=== PATIENT | female | born 1930 | race Caucasian/White ===

== ENCOUNTER 2016-08-17 16:32 | Emergency (ER) | payer MEDICARE ==
[~2016-08-17] VITALS: Ht 165.1 cm; Wt 72.6 kg
[~2016-08-17 16:32] MED LIST: ACETAMINOPHEN 500 MG PO; ALEN70TA2 PO; ALPR0.25 PO; ALPR0.2550 PO; ASP81CT PO; ASPI325T32 PO; ASPI325T4 PO; ATEN-147 PO; ATEN25TA PO; CHOL200018 PO; CHOL5000 PO; CHOL500019 PO; CITA10TA70 PO; CYCL10TA9 PO; DCS100C PO; FERR134T PO; HCT25T PO; HYDR-3714 PO; HYDR1TAB PO; KCL10CCR PO; MECL-124 PO; MECL-133 PO; MELO-195 PO; MULT1CAP27 PO; OMEP20CA12 PO; OMG1KC PO; POTA-51 PO; SIMV20TA3 PO; SIMV40TA4 PO; TRAM50TA2 PO
--- OUTSIDE RECORDS SUMMARY | 2016-08-17 16:39 | XMS REPORT | Continuity of Care Document ---
Author Author [facility] Organization [facility] Address Unknown Phone Unavailable Care Team Providers Care [employer] Name Role Phone MIKEL GERMAIN MD PCP Insurance Providers Payer Name Policy Number Subscriber Name Relationship Advantra Burt [id number] Georgiana Rossi 17 Self / Same As Patient Advance Directives Directive Response Recorded Date/Time Advance Directives Yes 09/12/14 12:58pm Health Care Power of [employer] Yes 09/12/14 12:58pm Organ Donor No 09/12/14 12:58pm Resuscitation Status DNR-Pt Request 09/12/14 12:58pm Problems No known problems or medical conditions. Medications Medication Dose Route Sig Days/Qty Instructions Order Date Discontinued Date Status Hydrochlorothiazide 25 Mg PO DAILY 02/16/10 09/12/14 Discontinued Meclizine Hcl 25 Mg PO THREE TIMES A DAY 02/16/10 09/12/14 Discontinued Aspirin 81 Mg PO DAILY 02/16/10 09/20/14 Discontinued Simvastatin 20 Mg PO DAILY AT HS 02/16/10 09/12/14 Discontinued Atenolol 1 Each PO DAILY AT HS 02/16/10 09/20/14 Discontinued Alprazolam 1 Each PO Q8HR PRN 02/16/10 09/12/14 Discontinued Multivitamins 1 Each PO DAILY 02/16/10 09/12/14 Discontinued Fish Oil 1,000 Mg PO DAILY 02/16/10 09/12/14 Discontinued Acetaminophen/Hydrocodone Bitart 0.5 - 1 Each PO Q4HR PRN 20 Qty 09/12/14 Discontinued Docusate Sodium 100 Mg PO TWICE A DAY 30 Qty Take while using pain medicine to avoid constipation 02/16/10 09/12/14 Discontinued Alprazolam 0.25 Mg PO TWICE A DAY PRN ANXIETY 09/12/14 Active Citalopram Hydrobromide 10 Mg PO BEDTIME 09/12/14 Active Simvastatin 40 Mg PO BEDTIME 09/12/14 Active Meclizine HCl 25 Mg PO TWICE A DAY 09/12/14 Active Hydrocodone Bit/Acetaminophen 1 Tab PO EVERY 8HRS PRN PAIN 09/12/14 Active Meloxicam (Mobic) 15 Mg PO DAILY 09/12/14 09/20/14 Discontinued Cholecalciferol (Vitamin D3) 2,000 Unit PO DAILY 09/12/14 Active Omeprazole 20 Mg PO DAILY 30 Qty 09/12/14 Active Tramadol Hcl 50 Mg PO EVERY 6 HOURS PRN PAIN 09/12/14 Active [Tylenol ES 500 MG] 500 Mg PO NEEDED PRN PAIN 09/12/14 Active Potassium Chloride 20 Meq PO DAILY 09/12/14 09/20/14 Discontinued Atenolol 50 Mg PO BEDTIME 60 Qty 09/20/14 Active Aspirin 325 Mg PO DAILY 100 Qty 09/20/14 Active Potassium Chloride 20 Meq PO DAILY@0700 60 Qty 09/20/14 Active Social History Social History Problem Response Recorded Date/Time Alcohol Use Denies Use 09/12/2014 1:02pm Recreational Drug Use No 09/12/2014 1:02pm Recent Foreign Travel No 09/12/2014 1:02pm Recent Infectious Disease Exposure No 09/12/2014 1:02pm Hospitalization with Isolation Denies 09/20/2014 7:55pm Smoking Status Never a Smoker 09/12/2014 12:57pm Do you dip or chew tobacco? No 09/12/2014 12:57pm Query Response Start Date Stop Date Smoking Status Never a Smoker Hospital Discharge Instructions Patient Instructions Physician Instructions Patient Instructions/FollowUp: s/p right total knee replacement [place]IA [place] DISCHARGE ORDERS Height (Feet): 5 Height (Inches): 2.00 Weight (Pounds): 143 Weight (Ounces): 2.0 Reason Pt Homebound Pt is unable to ambulate without assistance and is unable to drive. She is at high fall risk and working on relearning to walk I Have Seen Pt Sudt-du-Wjfi: Yes Date of Face to Face: Sep 20, 2014 Discharged To: Home Diagnosis/Conditions Order: 1. R total knee replacement 2.HTN 3.mild memory loss *I certify that based on my findings, the following services are medically necessary Home Health Services: Services: Nursing Services, Physical Therapy-Evaluate & Treat My clinical findings support the need for the above services; see Diagnosis. I certify that this patient is under my care and that I, a nurse practitioner or a physician; a assistant manager retail working with me, had a face to face encounter that - meets the physician face to face encounter requirements with this patient as dated. Plan of Care Discharge Date 09/20/14 2:30pm Disposition 30 STILL A PATIENT Instructions/Education Provided Total Knee Replacement (ED) Forms Provided PDI Surgical Prescriptions See Medications Section Referrals (Unspecified) Reason(s) for Referral: F/U with Dr. Gibbs 10/07/14 at 0900 AM. Care Plan and Goals Patient will need to discharge with [facility] for PT/OT and bath aide F/U with Dr. Gibbs 10/07/14 at 0900 AM. Functional Status Query Response Date Recorded Comprehension Ability Understands Concepts September 19, 2014 8:00am Allergies, Adverse Reactions, Alerts Allergen Type Severity Reaction Status Last Updated Penicillins ([id number]) Allergy Unknown Active 09/12/14 Codeine Allergy Unknown Active 09/12/14 Immunizations Name Given Type Date of Influenza Vaccine 06/16/14 Historical pneumococcal polysaccharide PPV23 09/20/14 Administered Vital Signs Acute Vital Signs Vital Response Date/Time Temperature (Fahrenheit) 98.0 degrees F (97.6 - 99.5) Temperature (Calculated Celsius) 36.86521 degrees C (36.4 - 37.5) Temperature Source Temporal Pulse Rate (adult) 60 bpm (60 - 90) Respiratory Rate 16 bpm (12 - 24) O2 Sat by Pulse Oximetry 97 % (88 - 100) Blood Pressure 176/74 mm Hg Pain Pain Intensity 0 Pain Pain Intensity 0 Height (Feet) 5 feet Height (Inches) 2.00 inches Height (Calculated Centimeters) 157.256324 cm Weight (Pounds) 143 pounds Weight (Ounces) 2.0 oz Weight (Calculated Grams) 40089.409 gm Weight (Calculated Kilograms) 64.814828 kilograms Calculated BMI 26.15 Results Laboratory Results Test Name Result Units Flags Reference Collection Date/Time Result Date/ Time Comments White Blood Count 10.4 10^3/uL 4.3-11.0 09/17/2014 5:05am 09/17/2014 6: 29am Red Blood Count 3.47 10^6/uL L 4.35-5.85 09/17/2014 5:0509/17/2014 6: 29am Hemoglobin 10.6 G/DL #L 11.5-16.0 09/17/2014 5:0509/17/2014 6:29am Hematocrit 33 % L 35-52 09/17/2014 5:0509/17/2014 6:29am Mean Corpuscular Volume 94 FL 80-99 09/17/2014 5:0509/17/2014 6: 29am Mean Corpuscular Hemoglobin 31 PG 25-34 09/17/2014 5:0509/17/2014 6: 29am Mean Corpuscular Hemoglobin Concent 33 G/DL 32-36 09/17/2014 5:0501/2015 6:29am Red Cell Distribution Width 13.0 % 10.0-14.5 09/17/2014 5:052014 6:29am Platelet Count 462 10^3/uL H 130-400 09/17/2014 5:0509/17/2014 6:29am Mean Platelet Volume 9.7 FL 7.4-10.4 09/17/2014 5:0509/17/2014 6: 29am Sodium Level 137 MMOL/L 135-145 09/17/2014 5:0509/17/2014 6:13am Potassium Level 3.7 MMOL/L 3.6-5.0 09/17/2014 5:0509/17/2014 6:13am Chloride Level 98 MMOL/L 98-107 09/17/2014 5:0509/17/2014 6:13am Carbon Dioxide Level 28 MMOL/L 21-32 09/17/2014 5:0509/17/2014 6: 13am Blood Urea Nitrogen 16 MG/DL 7-18 09/17/2014 5:05am 09/17/2014 6:13am Creatinine 0.93 MG/DL 0.60-1.30 09/17/2014 5:05am 09/17/2014 6:13am BUN/Creatinine Ratio 17 09/17/2014 5:05am 09/17/2014 6:13am Estimat Glomerular Filtration Rate 57 09/17/2014 5:05am 09/17/2014 6:13am GFR INTERPRETIVE DATA UNITS FOR ESTIMATED GFR (eGFR): mL/min/1.73 M2 REFERENCE RANGE FOR ESTIMATED GFR (eGFR) eGFR NORMAL eGFR >60 MODERATELY DECREASED eGFR 30-59 SEVERLY DECREASED eGFR 15-29 KIDNEY FAILURE <15 (OR DIALYSIS) Glucose Level 96 MG/DL 70-105 09/17/2014 5:05am 09/17/2014 6:13am Calcium Level 9.9 MG/DL 8.5-10.1 09/17/2014 5:05am 09/17/2014 6:13am Magnesium Level 1.9 MG/DL 1.8-2.4 09/13/2014 4:24am 09/13/2014 5:29am Procedures No known history of procedures. Encounters Encounter Location Date/Time Discharged Inpatient Via [facility] 09/12/14 12:07pm
[2016-08-17] MEDS ORDERED: ACETAMINOPHEN 500 MG TAB (TYLENOL) PO ONE (16:45)
--- NOTE | 2016-08-17 17:06 | ED Head Injury ---
General Chief Complaint: Head/Cervical Problems Stated Complaint: LOC/FALL/HEAD INJ Nursing Triage Note: Pt had a syncope episode and then fell thus hitting her head. Redness noted top of scalp. Source: patient, family History of Present Illness Time seen by provider: 17:02 Initial Comments This 86-year-old white female presents after syncopal episode that occurred short of her presentation to the emergency department seeming. The patient in falling struck her head over her left occiput. The patient when she awoke was verbally appropriate. Other than complaining of some pain over the impact located over the left occipital area. She has no other significant complaint. Patient has a history of frequent falls in the past. Usually these are due to loss of balance. The patient has Mnire's disease. The patient syncopal episode tonight was unusual for the patient in that it was a syncopal episode. She denies associated palpitations, chest pain, shortness of breath, associated vomiting, diarrhea, dysuria or frequency, fever or chill. Past medical history of significance includes previous hypokalemia episodes leading to fainting. Allergies and Home Medications Allergies Coded Allergies: Penicillins (Unverified Allergy, Unknown, 09/12/14) Sulfa (Sulfonamide Antibiotics) (Unverified Allergy, Unknown, RASH, 03/12/15 ) codeine (Unverified Allergy, Unknown, 09/12/14) Home Medications 500 MG PO PRN PRN PRN PAIN (Reported) Alendronate Sodium 70 Mg Tablet 70 MG PO UD (Reported) Alprazolam 0.25 Mg Tablet 0.25 MG PO BID PRN PRN ANXIETY (Reported) Aspirin 325 Mg Tablet.dr 325 MG PO BID (Reported) Atenolol 25 Mg Tablet 1 EACH PO HS (Reported) Cholecalciferol 5,000 Unit Capsule 5,000 UNIT PO DAILY (Reported) Cholecalciferol (Vitamin D3) 50,000 Unit Capsule 50,000 UNIT PO UD (Reported) Citalopram Hydrobromide 10 Mg Tablet 10 MG PO HS (Reported) Cyclobenzaprine Hcl 10 Mg Tablet 1 EACH PO TID PRN PRN SPASMS (Reported) Ferrous Sulfate 134 Mg Tablet 150 MG PO BID (Reported) Hydrocodone Bit/Acetaminophen 1 Tab Tablet 1 TAB PO Q4H PRN PRN PAIN (Reported) Meclizine Hcl 25 Mg Tab 25 MG PO BID (Reported) Omeprazole 20 Mg Capsule.dr #30 20 MG PO DAILY (Reported) Potassium Chloride 10 Meq Capcr #60 20 MEQ PO DAILY@0700 Prescribed by: KINGSLEY MCGINNIS on 09/20/14 0759 Simvastatin 40 Mg Tablet 40 MG PO HS (Reported) Constitutional: No chills, No fever Eyes: Denies Blurred Vision Ears, Nose, Mouth, Throat: denies ear pain Respiratory: No cough Cardiovascular: No chest pain, No palpitations, syncope Gastrointestinal: No abdominal pain, No diarrhea, No nausea, No vomiting Genitourinary: No dysuria : No Musculoskeletal: No back pain Skin: No rash Psychiatric/Neurological: No Symptoms Reported Endocrine: No Symptoms Reported Hematologic/Lymphatic: No Symptoms Reported Past Larcjyr-Autxef-Akvrro Hx Patient Social History Alcohol Use: Denies Use Recreational Drug Use: No Smoking Status: Never a Smoker Recent Foreign Travel: No Contact w/Someone Who Travel: No Recent Infectious Disease Expo: No Recent Hopitalizations: No Physical Abuse Screen: No Sexual Abuse: No Immunizations Up To Date PED Vaccines UTD: No Date of Influenza Vaccine: May 03, 2016 Surgeries HX Surgeries: Yes (Right and Left TKR) Surgeries: Orthopedic Respiratory Hx Respiratory Disorders: No Cardiovascular Hx Cardiac Disorders: Yes Cardiac Disorders: Hypertension Neurological Hx Neurological Disorders: No Reproductive System Hx Reproductive Disorders: No Genitourinary Hx Genitourinary Disorders: No Gastrointestinal Hx Gastrointestinal Disorders: Yes (Reflux) Musculoskeletal Hx Musculoskeletal Disorders: Yes (FX humerus, sacrum, R AND L TKR ) Musculoskeletal Disorders: Osteoporosis, Arthritis, Fractures Endocrine Hx Endocrine Disorders: No HEENT HX ENT Disorders: Yes (Cataract surgery; Miniere's DX) HEENT Disorders: Cataract Cancer Hx Cancer: No Psychosocial Hx Psychiatric Problems: Yes Behavioral Health Disorders: Anxiety, Depression Integumentary HX Skin/Integumentary Disorder: No Reviewed Nursing Assessment Reviewed/Agree w Nursing PMH: Yes Physical Exam Vital Signs Vital Sign - Last 12Hours 08/17/16 16:47 Temp 98.3 Pulse 55 Resp 16 B/P 204/93 Pulse Ox 98 Capillary Refill : Less Than 3 Seconds General Appearance: WD/WN mild distress HEENT: other (there is a contusion abrasion noted over the patient's occipital approximately a 4 cm in diameter.) Neck: non-tender full range of motion supple Cardiovascular: regular rate, rhythm bradycardia Respiratory: lungs clear normal breath sounds no respiratory distress Gastrointestinal: normal bowel sounds non tender soft Back: normal inspection Extremities: normal range of motion non-tender normal inspection Psychiatric: alert oriented x 3 Crainal Nerves: normal hearing normal speech Motor/Sensory: no motor deficit no sensory deficit Skin: normal color warm/dry other (occipital contusion abrasion) [place] Coma Score Best Eye Response: (4) Open Spontaneously Best Verbal Response: (5) Oriented Best Motor Response: (6) Obeys Commands Jayson Total: 15 Progress/Results/Core Measures Results/Orders Lab Results Laboratory Tests Test 08/17/16 17:03 Range/Units Alanine Aminotransferase (ALT/SGPT) 11 0-55 U/L Albumin 4.1 3.2-4.5 G/DL Alkaline Phosphatase 67 40-136 U/L Anion Gap 10 5-14 MMOL/L Aspartate Amino Transf (AST/SGOT) 21 5-34 U/L BUN/Creatinine Ratio 25 Band Neutrophils 5 % Basophils # (Auto) 0.0 0.0-0.1 10^3/uL Basophils % (Manual) 1 % Basophils (%) (Auto) 0 0-10 % Blood Morphology Comment NORMAL Blood Urea Nitrogen 22 H 7-18 MG/DL Calcium Level 8.9 8.5-10.1 MG/DL Carbon Dioxide Level 24 21-32 MMOL/L Chloride Level 102 98-107 MMOL/L Creatinine 0.88 0.60-1.30 MG/DL Eosinophils # (Auto) 0.1 0.0-0.3 10^3/uL Eosinophils % (Manual) 2 % Eosinophils (%) (Auto) 1 0-10 % Estimat Glomerular Filtration Rate > 60 Glucose Level 168 H 70-105 MG/DL Hematocrit 38 35-52 % Hemoglobin 11.8 11.5-16.0 G/DL Lymphocytes # (Auto) 0.7 L 1.0-4.0 X 10^3 Lymphocytes % (Manual) 5 % Lymphocytes (%) (Auto) 6 L 12-44 % Mean Corpuscular Hemoglobin 28 25-34 PG Mean Corpuscular Hemoglobin Concent 32 32-36 G/DL Mean Corpuscular Volume 88 80-99 FL Mean Platelet Volume 10.2 7.4-10.4 FL Monocytes # (Auto) 0.7 0.0-1.0 X 10^3 Monocytes % (Manual) 7 % Monocytes (%) (Auto) 6 0-12 % Neutrophils # (Auto) 10.6 H 1.8-7.8 X 10^3 Neutrophils % (Manual) 80 % Neutrophils (%) (Auto) 88 H 42-75 % Platelet Count 214 130-400 10^3/uL Potassium Level 3.5 L 3.6-5.0 MMOL/L Red Blood Count 4.26 L 4.35-5.85 10^6/uL Red Cell Distribution Width 14.3 10.0-14.5 % Sodium Level 136 135-145 MMOL/L Total Bilirubin 0.4 0.1-1.0 MG/DL Total Protein 7.1 6.4-8.2 G/DL White Blood Count 12.1 H 4.3-11.0 10^3/uL My Orders Orders-JASSON ALEXIS MD Ct Head/Cervical Spine Wo (08/17/16 16:36) Comprehensive Metabolic Panel (08/17/16 16:36) Cbc With Automated Diff (08/17/16 16:36) Acetaminophen Tablet (Tylenol Tablet) (08/17/16 16:45) Manual Differential (08/17/16 17:03) Medications Given in ED Current Medications Medications Dose Ordered Sig/Lori Route Start Time Stop Time Status Last Admin Dose Admin Acetaminophen 1,000 mg ONCE ONCE PO 08/17/16 16:45 08/17/16 16:46 DC 08/17/16 17:40 1,000 MG Vital Signs/I&O Vital Sign - Last 12Hours 08/17/16 08/17/16 16:47 17:40 Temp 98.3 98.3 Pulse 55 Resp 16 B/P 204/93 Pulse Ox 98 Blood Pressure Mean: 130 Progress Note : Time: 18:[address] of the patient's head and neck demonstrated no evidence of cervical spine fracture. There was however bilateral subdural hematomas. One was located beneath the left occipital contusion. The other was a contrecoup injury located over the base of the right cerebrum. Patient's potassium was normal at 3.5. Patient's EKG demonstrated a sinus bradycardia but no evidence of an acute current of injury. After prolonged conversation with patient and family patient agreed to a transfer to [place] to be cared for by neurosurgery at [place]. Dr. Mendoza in the emergency department at [place] excepted the patient in transfer. Departure Impression Impression: Primary Impression: Bilateral subdural hematomas Additional Impression: Episode of syncope Qualified Code: R55 - Syncope and collapse Disposition: XF SHT-TRM HOSP Condition: Unchanged Transfer Transfer Notes Dr. Mendoza in the emergency department at [place] except the patient in transfer. Call is placed to EMS for transfer. Transfer Time: 18:40 Transfer Facility: [facility] Method of Transfer: EMS ([facility]) Departure-Patient Inst. Referrals: YEVGENIY BRAVO MD (PCP/Family) Primary Care Physician JASSON ALEXIS MD Aug 17, 2016 17:06
[2016-08-17 17:10] LABS: BASOPHILS % (AUTO) 0 % (0-10); EOSINOPHILS # (AUTO) 0.1 10^3/uL (0.0-0.3); EOSINOPHILS % (AUTO) 1 % (0-10); LYMPHOCYTES # (AUTO) 0.7 X 10^3 (1.0-4.0); LYMPHOCYTES % (AUTO) 6 % (12-44); MEAN CORPUSCULAR HEMOGLOBIN 28 PG (25-34); MEAN CORPUSCULAR HGB CONC 32 G/DL (32-36); MEAN CORPUSCULAR VOLUME 88 FL (80-99); MEAN PLATELET VOLUME 10.2 FL (7.4-10.4); MONOCYTES # (AUTO) 0.7 X 10^3 (0.0-1.0); MONOCYTES % (AUTO) 6 % (0-12); NEUTROPHILS # (AUTO) 10.6 X 10^3 (1.8-7.8); NEUTROPHILS % (AUTO) 88 % (42-75); PLATELET COUNT 214 10^3/uL (130-400); RED BLOOD COUNT 4.26 10^6/uL (4.35-5.85); RED CELL DISTRIBUTION WIDTH 14.3 % (10.0-14.5); WHITE BLOOD COUNT 12.1 10^3/uL (4.3-11.0)
[2016-08-17 17:32] LABS: ALANINE AMINOTRANSFERASE 11 U/L (0-55); ALBUMIN 4.1 G/DL (3.2-4.5); ANION GAP 10 MMOL/L (5-14); ASPARTATE AMINO TRANSFERASE 21 U/L (5-34); BILIRUBIN,TOTAL 0.4 MG/DL (0.1-1.0); BLOOD UREA NITROGEN 22 MG/DL (7-18); BUN/CREATININE RATIO 25; CALCIUM 8.9 MG/DL (8.5-10.1); CARBON DIOXIDE 24 MMOL/L (21-32); CHLORIDE 102 MMOL/L (98-107); CREATININE SERUM 0.88 MG/DL (0.60-1.30); GFR ESTIMATED > 60; GLUCOSE 168 MG/DL (70-105); POTASSIUM 3.5 MMOL/L (3.6-5.0); SODIUM 136 MMOL/L (135-145); TOTAL PROTEIN 7.1 G/DL (6.4-8.2)
--- NOTE | 2016-08-17 17:46 | Diagnostic Imaging Report ---
PROCEDURE: CT head and CT cervical spine without contrast. TECHNIQUE: Multiple contiguous axial images were obtained through the brain and cervical spine without the use of intravenous contrast. Sagittal and coronal reformations through the cervical spine were then performed. INDICATION: Fell, head neck pain. CT HEAD: There are no previous CT head examinations available for comparison. FINDINGS: There is a sizable area of soft tissue edema and hematoma formation along the posterior aspect of the left parietal bone near the vertex of the skull. There is no evidence for a skull fracture in this area but there is a small amount of acute hemorrhage in the subdural space in this region. The hemorrhage measures roughly 9.4 mm in maximum thickness. In addition, there is also a small amount of acute hemorrhage in the subdural space along the free edge of the tentorium on the right. The hemorrhage in this area measures 7 mm in maximum thickness. There is no other extra-axial hemorrhage identified. There is no parenchymal hemorrhage noted either. The ventricles are not abnormally dilated and stable in size when compared to the MR brain exam of 04/23/12. The cortical atrophy and periventricular encephalomalacia seen previously are again evident and no different. The orbits are symmetrical and within normal limits. The sinuses are generally clear. IMPRESSION: 1. There is a prominent area of soft tissue edema and hematoma formation involving the scalp over the left parietal bone. While there is no skull fracture identified, there is evidence of acute hemorrhage in the subdural space in this region and along the free edge of the tentorium on the right. No other hemorrhage is noted. Even so, a short-term (24 hour) followup CT head exam would be recommended for further study. 2. There is no other acute abnormality identified. These results were discussed with Dr. Vipul Chaudhry in the ER by Dr. Denis. CT CERVICAL SPINE: The reconstructed parasagittal images again show the vertebral body heights to be within normal limits and similar to the prior exam of 11/13/12. 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 The degenerative disc and bony disease at C5-6 and C6-7 noted previously does not appear to have progressed significantly either. There is no fracture or acute bony abnormality identified. There is no sign of retropharyngeal edema. The lung apices are clear. The thyroid gland is unremarkable. IMPRESSION: There is no evidence for an acute bony abnormality. CRITICAL FINDING Dictated by: Dictated on workstation # [id number]
[2016-08-17 17:47] LABS: BAND NEUTROPHILS 5 %; BASOPHILS % (MANUAL) 1 %; EOSINOPHILS % (MANUAL) 2 %; LYMPHOCYTES % (MANUAL) 5 %; NEUTROPHILS % (MANUAL) 80 %
[2016-08-17] MEDS ORDERED: hydrALAZINE (APESOLINE) 20 MG/ML VIAL IV STA (19:15)
[2016-08-17 19:27] VITALS: BP 187/80
[2016-08-17] MEDS ORDERED: hydrALAZINE (APESOLINE) 20 MG/ML VIAL IV ONE (19:30)
[2016-08-17 19:34] VITALS: BP 165/66
== END 2016-08-17 19:37 | disposition short-term general hospital (02) ==
LOC: EDUNIT# 16:32 → ER 16:34
DX: S06.5X9A Traumatic subdural hemorrhage with loss of consciousness of unspecified duration, initial encounter (principal); S00.01XA Abrasion of scalp, initial encounter; I10 Essential (primary) hypertension; R29.6 Repeated falls; Z79.82 Long term (current) use of aspirin; Z79.899 Other long term (current) drug therapy; W18.30XA Fall on same level, unspecified, initial encounter; Y92.009 Unspecified place in unspecified non-institutional (private) residence as the place of occurrence of the external cause; Y99.8 Other external cause status
CPT/HCPCS: 36415; 70450; 72125; 80053; 85007; 85027; 93005; 96374

== ENCOUNTER 2017-09-18 13:35 | Inpatient (IN) | payer MEDICARE ==
[~2017-09-18] VITALS: Ht 165.1 cm; Wt 68.9 kg
[2017-09-18] MEDS ORDERED: cefTRIAXone 1 GM (ROCEPHIN) VIAL IV STA (13:39)
[2017-09-18] MEDS ORDERED: NS IV 1000 ML 1,000 ML IV ONE (13:39)
--- OUTSIDE RECORDS SUMMARY | 2017-09-18 13:39 | XMS REPORT | Continuity of Care Document ---
Author Author [facility] Organization [facility] Address Unknown Phone Unavailable Allergies Active Description Code Type Severity Reaction Onset Reported/Identified Relationship to Patient Clinical Status Yes codeine [id number] Drug Allergy Unknown N/A 09/12/2014 Yes PENICILLIN PENICILLIN Unknown N/A 09/12/2014 Yes Penicillins [id number] Drug Allergy Unknown N/A 09/12/2014 Yes Sulfa (Sulfonamide Antibiotics) [id number] Drug Allergy Unknown RASH 2014 Medications There is no data. Problems Date Dx Coded Attending Type Code Diagnosis Diagnosed By 02/16/2010 Ot 805.6 02/16/2010 Ot 959.19 02/16/2010 Ot E000.8 02/16/2010 Ot E030 02/16/2010 Ot E849.0 02/16/2010 Ot E888.9 06/23/2014 Ot 722.4 06/23/2014 Ot 722.52 06/23/2014 Ot 368.47 06/23/2014 Ot 722.4 06/28/2014 Ot 722.4 06/28/2014 Ot 722.52 06/28/2014 Ot 368.47 06/28/2014 Ot 722.4 07/12/2014 MIKEL GERMAIN MD Ot V54.11 07/12/2014 MIKEL GERMAIN MD Ot V57.1 07/22/2014 MIKEL GERMAIN MD Ot V54.11 AFTERCARE HEALING TRAUMATIC FX UPPER ARM 07/22/2014 MIKEL GERMAIN MD Ot V57.1 PHYSICAL THERAPY NEC 09/12/2014 Ot 722.4 09/12/2014 Ot 722.52 09/12/2014 Ot 368.47 09/12/2014 Ot 722.4 09/15/2014 KINGSLEY MCGINNIS MD Ot 285.9 09/15/2014 KINGSLEY MCGINNIS MD Ot 401.9 09/15/2014 KINGSLEY MCGINNIS MD Ot V43.65 09/15/2014 RAS ZHAO, KINGSLEY M Ot V54.81 09/15/2014 RAS ZHAO, KINGSLEY M Ot V57.89 09/16/2014 RAS ZHAO, KINGSLEY M Ot 285.9 09/16/2014 RAS ZHAO, KINGSLEY M Ot 401.9 09/16/2014 RAS ZHAO, KINGSLEY M Ot V43.65 09/16/2014 RAS ZHAO, KINGSLEY M Ot V54.81 09/16/2014 RAS ZHAO, KINGSLEY M Ot V57.89 09/16/2014 RAS ZHAO, KINGSLEY M Ot 285.9 09/16/2014 RAS ZHAO, KINGSLEY M Ot 401.9 09/16/2014 RAS ZHAO, KINGSLEY M Ot V43.65 09/16/2014 RAS ZHAO, KINGSLEY M Ot V54.81 09/16/2014 RAS ZHAO, KINGSLEY M Ot V57.89 09/16/2014 Ot 722.4 09/16/2014 Ot 722.52 09/16/2014 Ot 368.47 09/16/2014 Ot 722.4 09/16/2014 RAS ZHAO, KINGSLEY M Ot 285.9 09/16/2014 RAS ZHAO, KINGSLEY M Ot 401.9 09/16/2014 RAS ZHAO, KINGSLEY M Ot V43.65 09/16/2014 RAS ZHAO, KINGSLEY M Ot V54.81 09/16/2014 RAS ZHAO, KINGSLEY M Ot V57.89 09/20/2014 RAS ZHAO, KINGSLEY M Ot 285.9 09/20/2014 RAS ZHAO, KINGSLEY M Ot 401.9 09/20/2014 RAS ZHAO, KINGSLEY M Ot V43.65 09/20/2014 RAS ZHAO, KINGSLEY M Ot V54.81 09/20/2014 RAS ZHAO, KINGSLEY M Ot V57.89 09/20/2014 RAS ZHAO, KINGSLEY M Ot 285.1 AC POSTHEMORRHAG ANEMIA 09/20/2014 RAS ZHAO, KINGSLEY M Ot 285.9 09/20/2014 RAS ZHAO, KINSGLEY M Ot 294.20 DEMENTIA, UNSPECIFIED, WITHOUT BEHAVIORA 09/20/2014 RAS ZHAO, KINGSLEY David Ot 401.9 HYPERTENSION NOS 09/20/2014 RAS ZHAO, KINGSLEY Frankie Ot V43.65 KNEE JOINT REPLACEMENT STATUS 09/20/2014 RAS ZHAO, KINGSLEY Frankie Ot V54.81 AFTERCARE FOLLOWING JOINT REPLACEMENT 09/20/2014 RAS ZHAO, KINGSLEY Frankie Ot V57.89 REHABILITATION PROC NEC 11/04/2014 Ot 722.4 11/04/2014 Ot 722.52 11/04/2014 Ot 368.47 11/04/2014 Ot 722.4 11/18/2014 RAS ZHAO, KINGSLEY Frankie Ot 733.00 03/14/2015 SHELLY ZHAO, YEVGENIY A Ot 300.00 03/14/2015 SHELLY ZHAO, YEVGENIY A Ot 311 03/14/2015 SHELLY ZHAO, YEVGENIY A Ot 401.9 03/14/2015 SHELLY ZHAO, YEVGENIY A Ot 530.81 03/14/2015 SHELLY ZHAO, YEVGENIY A Ot V43.64 03/14/2015 SHELLY ZHAO, YEVGENIY A Ot V54.81 03/14/2015 SHELLY ZHAO, YEVGENIY A Ot V57.89 03/14/2015 SHELLY ZHAO, YEVGENIY A Ot 300.00 03/14/2015 SHELLY ZHAO, YEVGENIY A Ot 311 03/14/2015 SHELLY ZHAO, YEVGENIY A Ot 401.9 03/14/2015 SHELLY ZHAO, YEVGENIY A Ot 530.81 03/14/2015 SHELLY ZHAO, YEVGENIY A Ot V43.64 03/14/2015 SHELLY ZHAO, YEVGENIY A Ot V54.81 03/14/2015 SHELLY ZHAO, YEVGENIY A Ot V57.89 03/16/2015 SHELLY ZHAO, YEVGENIY A Ot 300.00 03/16/2015 SHELLY ZHAO, YEVGENIY A Ot 311 03/16/2015 SHELLY ZHAO, YEVGENIY A Ot 401.9 03/16/2015 SHELLY ZHAO, YEVGENIY A Ot 530.81 03/16/2015 SHELLY ZHAO, YEVGENIY A Ot V43.64 03/16/2015 SHELLY ZHAO, YEGVENIY A Ot V54.81 03/16/2015 SHELLY ZHAO, YEVGENIY A Ot V57.89 03/19/2015 SHELLY ZHAO, YEVGENIY A Ot 294.20 DEMENTIA, UNSPECIFIED, WITHOUT BEHAVIORA 03/19/2015 SHELLY ZHAO, YEVGENIY Sanchez Ot 300.00 ANXIETY STATE NOS 03/19/2015 SHELLY ZHAO, YEVGENIY Sanchez Ot 311 DEPRESSIVE DISORDER NEC 03/19/2015 SHELLY ZHAO, YEVGENIY Sanchez Ot 401.9 HYPERTENSION NOS 03/19/2015 SHELLY ZHAO, YEVGENIY Sanchez Ot 530.81 ESOPHAGEAL REFLUX 03/19/2015 SHELLY ZHAO, YEVGENIY Sanchez Ot 715.90 OSTEOARTHROS NOS-UNSPEC 03/19/2015 SHELLY ZHAO, YEVGENIY Sanchez Ot V43.64 HIP JOINT REPLACEMENT STATUS 03/19/2015 SHELLY ZHAO, YEVGENIY Sanchez Ot V54.81 AFTERCARE FOLLOWING JOINT REPLACEMENT 03/19/2015 SHELLY ZHAO, YEVGENIY Sanchez Ot V57.89 REHABILITATION PROC NEC 08/17/2016 Ot 722.4 CERVICAL DISC DEGEN 08/17/2016 Ot 722.52 LUMB/ LUMBOSAC DISC DEGEN 08/17/2016 Ot 368.47 HETERONYMOUS HEMIANOPSIA 08/17/2016 Ot 722.4 CERVICAL DISC DEGEN 08/17/2016 KINGSLEY MCGINNIS MD Ot 733.00 OSTEOPOROSIS NOS 08/17/2016 Ot 722.4 CERVICAL DISC DEGEN 08/17/2016 Ot 722.52 LUMB/ LUMBOSAC DISC DEGEN 08/17/2016 Ot 368.47 HETERONYMOUS HEMIANOPSIA 08/17/2016 Ot 722.4 CERVICAL DISC DEGEN 08/17/2016 KINGSLEY MCGINNIS MD Ot 733.00 OSTEOPOROSIS NOS 08/17/2016 REUBEN ZHAO, JASSON Kelley Ot I10 ESSENTIAL (PRIMARY) HYPERTENSION 08/17/2016 REUBEN ZHAO, JASSON Kelley Ot R29.6 REPEATED FALLS 08/17/2016 JASSON ALEXIS MD Ot R55 SYNCOPE AND COLLAPSE 08/17/2016 JASSON ALEXIS MD Ot S00.01XA ABRASION OF SCALP, INITIAL ENCOUNTER 08/17/2016 REUBEN ZHAO, JASSON Kelley Ot S06.5X9A TRAUM SUBDR HEM W LOC OF UNSP DURATION, 08/17/2016 JASSON ALEXIS MD Ot W18.30XA FALL ON SAME LEVEL, UNSPECIFIED, INITIAL 08/17/2016 JASSON ALEXIS MD Ot Y92.[address] [facility] NON-INSTITUT (PRIVATE 08/17/2016 JASSON ALEXIS MD Ot Y99.8 OTHER EXTERNAL CAUSE STATUS 08/17/2016 JASSON ALEXIS MD Ot Z79.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 08/17/2016 JASSON ALEXIS MD Ot Z79.899 OTHER NUTRITION AND DIETETICS INSTRUCTOR (CURRENT) DRUG THERAPY 06/15/2017 JASSON ALEXIS MD Ot E87.6 HYPOKALEMIA 06/15/2017 JASSON ALEXIS MD Ot F32.9 MAJOR DEPRESSIVE DISORDER, SINGLE EPISOD 06/15/2017 JASSON ALEXIS MD, Ot F41.9 ANXIETY DISORDER, UNSPECIFIED 06/15/2017 JASSON ALEXIS MD, Ot I10 ESSENTIAL (PRIMARY) HYPERTENSION 06/15/2017 JASSON ALEXIS MD Ot M81.0 AGE-RELATED OSTEOPOROSIS W/O CURRENT PAT 06/15/2017 JASSON ALEXIS MD, Ot R42 DIZZINESS AND GIDDINESS 06/15/2017 JASSON ALEXIS MD Ot Z87.01 PERSONAL HISTORY OF PNEUMONIA (RECURRENT 06/15/2017 JASSON ALEXIS MD, Ot Z87.81 PERSONAL HISTORY OF (HEALED) TRAUMATIC F 06/15/2017 JASSON ALEXIS MD Ot Z87.828 PERSONAL HISTORY OF OTH (HEALED) PHYSICA Procedures There is no data. Results Test Result Range Complete blood count (CBC) with automated white blood cell (WBC) differential - 08/17/16 17:03 Blood leukocytes automated count (number/volume) 12.1 10*3/uL 4.3-11.0 Blood erythrocytes automated count (number/volume) 4.26 10*6/uL 4.35-5.85 Venous blood hemoglobin measurement (mass/volume) 11.8 g/dL 11.5-16.0 Blood hematocrit (volume fraction) 38 % 35-52 Automated erythrocyte mean corpuscular volume 88 [foz_us] 80-99 Automated erythrocyte mean corpuscular hemoglobin (mass per erythrocyte) 28 pg 25-34 Automated erythrocyte mean corpuscular hemoglobin concentration measurement ( mass/volume) 32 g/dL 32-36 Automated erythrocyte distribution width ratio 14.3 % 10.0-14.5 Automated blood platelet count (count/volume) 214 10*3/uL 130-400 Automated blood platelet mean volume measurement 10.2 [foz_us] 7.4-10.4 Automated blood neutrophils/100 leukocytes 88 % 42-75 Automated blood lymphocytes/100 leukocytes 6 % 12-44 Blood monocytes/100 leukocytes 6 % 0-12 Automated blood eosinophils/100 leukocytes 1 % 0-10 Automated blood basophils/100 leukocytes 0 % 0-10 Blood neutrophils automated count (number/volume) 10.6 10*3 1.8-7.8 Blood lymphocytes automated count (number/volume) 0.7 10*3 1.0-4.0 Blood monocytes automated count (number/volume) 0.7 10*3 0.0-1.0 Automated eosinophil count 0.1 10*3/uL 0.0-0.3 Automated blood basophil count (count/volume) 0.0 10*3/uL 0.0-0.1 Comprehensive metabolic panel - 08/17/16 17:03 Serum or plasma sodium measurement (moles/volume) 136 mmol/L 135-145 Serum or plasma potassium measurement (moles/volume) 3.5 mmol/L 3.6-5.0 Serum or plasma chloride measurement (moles/volume) 102 mmol/L 98-107 Carbon dioxide 24 mmol/L 21-32 Serum or plasma anion gap determination (moles/volume) 10 mmol/L 5-14 Serum or plasma urea nitrogen measurement (mass/volume) 22 mg/dL 7-18 Serum or plasma creatinine measurement (mass/volume) 0.88 mg/dL 0.60-1.30 Serum or plasma urea nitrogen/creatinine mass ratio 25 NRG Serum or plasma creatinine measurement with calculation of estimated glomerular filtration rate > NRG Serum or plasma glucose measurement (mass/volume) 168 mg/dL 70-105 Serum or plasma calcium measurement (mass/volume) 8.9 mg/dL 8.5-10.1 Serum or plasma total bilirubin measurement (mass/volume) 0.4 mg/dL 0.1-1.0 Serum or plasma alkaline phosphatase measurement (enzymatic activity/volume) 67 U/L 40-136 Serum or plasma aspartate aminotransferase measurement (enzymatic activity/ volume) 21 U/L 5-34 Serum or plasma alanine aminotransferase measurement (enzymatic activity/volume ) 11 U/L 0-55 Serum or plasma protein measurement (mass/volume) 7.1 g/dL 6.4-8.2 Serum or plasma albumin measurement (mass/volume) 4.1 g/dL 3.2-4.5 Blood manual differential performed detection - 08/17/16 17:03 Blood monocytes/100 leukocytes 7 % NRG Manual blood segmented neutrophils/100 leukocytes 80 % NRG Blood band neutrophils/100 leukocytes 5 % NRG Manual blood lymphocytes/100 leukocytes 5 % NRG Manual eosinophils/100 leukocytes in nose 2 % NRG Manual blood basophils/100 leukocytes 1 % NRG Blood erythrocyte morphology finding identification NORMAL NR Comprehensive metabolic panel - 06/15/17 11:59 Serum or plasma sodium measurement (moles/volume) 140 mmol/L 135-145 Serum or plasma potassium measurement (moles/volume) 4.0 mmol/L 3.6-5.0 Serum or plasma chloride measurement (moles/volume) 106 mmol/L 98-107 Carbon dioxide 22 mmol/L 21-32 Serum or plasma anion gap determination (moles/volume) 12 mmol/L 5-14 Serum or plasma urea nitrogen measurement (mass/volume) 11 mg/dL 7-18 Serum or plasma creatinine measurement (mass/volume) 0.83 mg/dL 0.60-1.30 Serum or plasma urea nitrogen/creatinine mass ratio 13 NRG Serum or plasma creatinine measurement with calculation of estimated glomerular filtration rate > NRG Serum or plasma glucose measurement (mass/volume) 90 mg/dL 70-105 Serum or plasma calcium measurement (mass/volume) 9.2 mg/dL 8.5-10.1 Serum or plasma total bilirubin measurement (mass/volume) 0.6 mg/dL 0.1-1.0 Serum or plasma alkaline phosphatase measurement (enzymatic activity/volume) 60 U/L 40-136 Serum or plasma aspartate aminotransferase measurement (enzymatic activity/ volume) 28 U/L 5-34 Serum or plasma alanine aminotransferase measurement (enzymatic activity/volume ) 10 U/L 0-55 Serum or plasma protein measurement (mass/volume) 7.4 g/dL 6.4-8.2 Serum or plasma albumin measurement (mass/volume) 4.0 g/dL 3.2-4.5 Serum or plasma troponin i.cardiac measurement (mass/volume) - 06/15/17 11:59 Serum or plasma troponin i.cardiac measurement (mass/volume) < ng/ mL <0.30 Complete blood count (CBC) with automated white blood cell (WBC) differential - 06/15/17 11:59 Blood leukocytes automated count (number/volume) 9.4 10*3/uL 4.3-11.0 Blood erythrocytes automated count (number/volume) 4.67 10*6/uL 4.35-5.85 Venous blood hemoglobin measurement (mass/volume) 13.1 g/dL 11.5-16.0 Blood hematocrit (volume fraction) 41 % 35-52 Automated erythrocyte mean corpuscular volume 88 [foz_us] 80-99 Automated erythrocyte mean corpuscular hemoglobin (mass per erythrocyte) 28 pg 25-34 Automated erythrocyte mean corpuscular hemoglobin concentration measurement ( mass/volume) 32 g/dL 32-36 Automated erythrocyte distribution width ratio 16.1 % 10.0-14.5 Automated blood platelet count (count/volume) 294 10*3/uL 130-400 Automated blood platelet mean volume measurement 10.6 [foz_us] 7.4-10.4 Automated blood neutrophils/100 leukocytes 70 % 42-75 Automated blood lymphocytes/100 leukocytes 19 % 12-44 Blood monocytes/100 leukocytes 8 % 0-12 Automated blood eosinophils/100 leukocytes 2 % 0-10 Automated blood basophils/100 leukocytes 1 % 0-10 Blood neutrophils automated count (number/volume) 6.6 10*3 1.8-7.8 Blood lymphocytes automated count (number/volume) 1.8 10*3 1.0-4.0 Blood monocytes automated count (number/volume) 0.8 10*3 0.0-1.0 Automated eosinophil count 0.2 10*3/uL 0.0-0.3 Automated blood basophil count (count/volume) 0.1 10*3/uL 0.0-0.1 Complete urinalysis with reflex to culture - 06/15/17 12:52 Urine color determination YELLOW NRG Urine clarity determination CLEAR NRG Urine pH measurement by test strip 8 5-9 Specific gravity of urine by test strip 1.015 1.016- 1.022 Urine protein assay by test strip, semi-quantitative NEGATIVE NEGATIVE Urine glucose detection by automated test strip NEGATIVE NEGATIVE Erythrocytes detection in urine sediment by light microscopy 2+ NEGATIVE Urine ketones detection by automated test strip NEGATIVE NEGATIVE Urine nitrite detection by test strip NEGATIVE NEGATIVE Urine total bilirubin detection by test strip NEGATIVE NEGATIVE Urine urobilinogen measurement by automated test strip (mass/volume) NORMAL NORMAL Urine leukocyte esterase detection by dipstick 1+ NEGATIVE Automated urine sediment erythrocyte count by microscopy (number/high power field) NONE NRG Automated urine sediment leukocyte count by microscopy (number/high power field ) NONE NRG Bacteria detection in urine sediment by light microscopy TRACE NRG Crystals detection in urine sediment by light microscopy NONE NRG Casts detection in urine sediment by light microscopy NONE NRG Mucus detection in urine sediment by light microscopy NEGATIVE NRG Complete urinalysis with reflex to culture NO NRG Encounters ACCT No. Visit Date/Time Discharge Status Pt. Type Provider Facility Loc./Unit Complaint [id number] 06/15/2017 11:20:00 06/15/2017 14:22:00 DIS Emergency JASSON ALEXIS MD [facility] ER DIZZINESS [id number] 08/17/2016 16:34:00 08/17/2016 19:37:00 DIS Emergency JASSON ALEXIS MD [facility] ER LOC/FALL/HEAD INJ [id number] 03/12/2015 11:37:00 03/19/2015 23:42:00 DIS Inpatient YEVGENIY BRAVO MD [facility] SURGICAL SWB TOTAL LEFT KNEE REPLACEMENT [id number] 11/04/2014 11:13:00 11/04/2014 23:59:59 CLS Outpatient KINGSLEY MCGINNIS MD [facility] RAD OSTEOPOROSIS [id number] 09/12/2014 12:07:00 09/20/2014 14:30:00 DIS Inpatient KINGSLEY MCGINNIS MD [facility] SURGICAL SWB;R TOTAL KNEE REPLACEMENT [id number] 07/22/2014 13:35:00 07/22/2014 14:55:00 DIS Outpatient MIKEL GERMAIN MD [facility] REHAB LEFT PROXIMAL HUMERUS FX [id number] 09/18/2017 13:36:00 ACT Emergency GISELA GARIBAY MD [facility] ER AMS [id number] 11/13/2012 13:49:00 Document Registration [id number] 04/23/2012 11:25:00 Document Registration [id number] 10/22/2011 11:02:00 Document Registration [id number] 02/16/2010 13:50:00 Document Registration
--- NOTE | 2017-09-18 13:58 | ED Neurological Problem ---
General Stated Complaint: AMS Source: patient, family (daughter) Exam Limitations: no limitations History of Present Illness Date Seen by Provider: Sep 18, 2017 Time Seen by Provider: 13:48 Initial Comments Patient presents to ER by private conveyance with her daughter and brother-in- law. Yesterday the [id number] noted the patient started having declining mental faculties inability to do her own ADLs and IADLs according to the daughter and was getting confused and having confused speech. No one noticed any facial droop, weakness or slurring of speech. She has no history of ischemic stroke however she does have a history of a fall resulting in subdural hematomas. She also has had a fall last couple months that resulted in some fractures in her left arm and has resulted in some contractures and painful left arm for which she is been treating it with tramadol. She had a UTI that completed antibiotic treatment about for 5 weeks ago. She's had no fevers, chills, cough, complaint of pain other than her left arm. Last tramadol dose was yesterday. She's not on opiates. She's been on the tramadol for several months now with no problems. She had no seizure-like activity. Most recently she was seen in June 2017, 3 or 4 months ago with dizziness thought to be attributed to her Mnire's as well as some anxiety for which she was given lorazepam. She is using this twice a day now one half tablet per her primary care physician for the past couple months. The daughter states she sets up the pills and the pill shoe planner and also on some to make sure that the patient is taking them appropriately and feels that her mother has been taking them as they are prescribed. Daughter relates that the patient had a single incidence of atrial fibrillation when she was sick last year and followed up with one of the cardiologists at [place], [place] and she's not had any atrial fibrillation since. She is not on any medicines for A. fib such as a beta rudi other than her atenolol that she 's been on for BP. The kiln drawer told her not to worry about it and did not need to follow-up on these issues. Patient's history of penicillin is a rash. Allergies and Home Medications Allergies Coded Allergies: Penicillins (Unverified Allergy, Unknown, 09/12/14) Sulfa (Sulfonamide Antibiotics) (Unverified Allergy, Unknown, RASH, 03/12/15 ) codeine (Unverified Allergy, Unknown, 09/12/14) Home Medications Alendronate Sodium 70 Mg Tablet, 70 MG PO UD, (Reported) Alprazolam 0.25 Mg Tablet, 0.25 MG PO BID PRN for ANXIETY, (Reported) Aspirin 325 Mg Tablet.dr, 325 MG PO BID, (Reported) Atenolol 25 Mg Tablet, 1 EACH PO HS, (Reported) Cholecalciferol 5,000 Unit Capsule, 5,000 UNIT PO DAILY, (Reported) Cholecalciferol (Vitamin D3) 50,000 Unit Capsule, 50,000 UNIT PO UD, (Reported) Citalopram Hydrobromide 10 Mg Tablet, 10 MG PO HS, (Reported) Cyclobenzaprine Hcl 10 Mg Tablet, 1 EACH PO TID PRN for SPASMS, (Reported) Ferrous Sulfate 134 Mg Tablet, 150 MG PO BID, (Reported) Hydrocodone Bit/Acetaminophen 1 Tab Tablet, 1 TAB PO Q4H PRN for PAIN, (Reported ) Meclizine Hcl 25 Mg Tab, 25 MG PO BID, (Reported) Omeprazole 20 Mg Capsule.dr, 20 MG PO DAILY, #30 (Reported) Potassium Chloride 10 Meq Capcr, 20 MEQ PO DAILY@0700, #60 Prescribed by: KINGSLEY MCGINNIS on 09/20/14 0759 Simvastatin 40 Mg Tablet, 40 MG PO HS, (Reported) [Tylenol ES 500 MG] , 500 MG PO PRN PRN for PAIN, (Reported) Constitutional: see HPI (patient unable to give any meaningful review of systems given her confusion.), No diaphoresis, No fever Eyes: Denies Blindness, Denies Pain Ears, Nose, Mouth, Throat: denies ear discharge, denies nose discharge Respiratory: No cough, No short of breath, No wheezing Gastrointestinal: No abdominal pain, No constipation, No diarrhea, No vomiting Past Qpotinx-Pcjwat-Tnjaue Hx Patient Social History Alcohol Use: Denies Use Recreational Drug Use: No Smoking Status: Never a Smoker Recent Foreign Travel: No Contact w/Someone Who Travel: No Recent Hopitalizations: No Immunizations Up To Date PED Vaccines UTD: No Date of Influenza Vaccine: May 03, 2016 Surgeries History of Surgeries: Yes (Right and Left TKR, cataract) Surgeries: Orthopedic Respiratory History of Respiratory Disorde: Yes Respiratory Disorders: Pneumonia Cardiovascular History of Cardiac Disorders: Yes Cardiac Disorders: Hypertension Neurological History of Neurological Disord: No (bilateral subdural hemorrage, syncope) Reproductive System Hx Reproductive Disorders: No Gastrointestinal History of Gastrointestinal Di: Yes (Reflux) Musculoskeletal History of Musculoskeletal Dis: Yes (FX humerus, sacrum, R AND L TKR ) Musculoskeletal Disorders: Osteoporosis, Arthritis, Fractures Endocrine History of Endocrine Disorders: No HEENT History of HEENT Disorders: Yes (miniere disease) HEENT Disorders: Cataract Cancer History of Cancer: No Psychosocial History of Psychiatric Problem: Yes Behavioral Health Disorders: Anxiety, Depression Integumentary History of Skin or Integumenta: No Physical Exam Vital Signs Vital Signs - First Documented 09/18/17 13:40 Temp 99.5 Pulse 66 Resp 20 B/P (MAP) 166/76 (106) Pulse Ox 95 O2 Delivery Nasal Cannula O2 Flow Rate 2.00 Capillary Refill : General Appearance: WD/WN, no apparent distress HEENT: PERRL/EOMI, normal ENT inspection, TMs normal, pharynx normal (oral mucosa is mildly dry) Neck: non-tender, full range of motion, supple, normal inspection Respiratory: chest non-tender, lungs clear, normal breath sounds, no respiratory distress, no accessory muscle use Cardiovascular: normal peripheral pulses, regular rate, rhythm, no edema Peripheral Pulses: 2+ Dorsalis Pedis (R), 2+ Left Dors-Pedis (L), 3+ Radial Pulses (R), 3+ Radial Pulses (L) Gastrointestinal: normal bowel sounds, non tender, soft, no organomegaly Back: normal inspection, no CVA tenderness, no vertebral tenderness Extremities: normal range of motion, non-tender, normal inspection, no pedal edema, no calf tenderness, normal capillary refill Neurologic/Psychiatric: no motor/sensory deficits, alert, other (oriented to self only. Able to answer some questions such as how long she's been appropriately but mostly nonsensical one-word answers. GCS 14) Crainal Nerves: normal hearing, PERRL Motor/Sensory: no motor deficit (moves all 4 extremities with 4 out of 5 motor strength symmetrically.), no sensory deficit Skin: normal color, warm/dry Lymphatic: no adenopathy Focused Exam Evaluation Lactate Level Laboratory Tests 09/18/17 13:54: Lactic Acid Level 1.06 Lactic Acid Level Laboratory Tests Test 09/18/17 13:54 Lactic Acid Level 1.06 MMOL/L (0.50-2.00) Progress/Results/Core Measures Results/Orders Lab Results Laboratory Tests Test 09/18/17 13:54 Range/Units White Blood Count 18.3 H 4.3-11.0 10^3/uL Red Blood Count 4.15 L 4.35-5.85 10^6/uL Hemoglobin 12.1 11.5-16.0 G/DL Hematocrit 37 35-52 % Mean Corpuscular Volume 88 80-99 FL Mean Corpuscular Hemoglobin 29 25-34 PG Mean Corpuscular Hemoglobin Concent 33 32-36 G/DL Red Cell Distribution Width 13.8 10.0-14.5 % Platelet Count 208 130-400 10^3/uL Mean Platelet Volume 10.7 H 7.4-10.4 FL Neutrophils (%) (Auto) 84 H 42-75 % Lymphocytes (%) (Auto) 6 L 12-44 % Monocytes (%) (Auto) 10 0-12 % Eosinophils (%) (Auto) 0 0-10 % Basophils (%) (Auto) 0 0-10 % Neutrophils # (Auto) 15.4 H 1.8-7.8 X 10^3 Lymphocytes # (Auto) 1.0 1.0-4.0 X 10^3 Monocytes # (Auto) 1.9 H 0.0-1.0 X 10^3 Eosinophils # (Auto) 0.0 0.0-0.3 10^3/uL Basophils # (Auto) 0.0 0.0-0.1 10^3/uL Neutrophils % (Manual) 86 % Lymphocytes % (Manual) 4 % Monocytes % (Manual) 9 % Basophils % (Manual) 1 % Blood Morphology Comment NORMAL Prothrombin Time 16.0 H 12.2-14.7 SEC INR Comment 1.3 0.8-1.4 Activated Partial Thromboplast Time 38 H 24-35 SEC Urine Color YELLOW Urine Clarity SLIGHTLY CLOUDY Urine pH 5 5-9 Urine Specific [place] 1.015 L 1.016-1.022 Urine Protein 3+ H NEGATIVE Urine Glucose (UA) NEGATIVE NEGATIVE Urine Ketones NEGATIVE NEGATIVE Urine Nitrite NEGATIVE NEGATIVE Urine Bilirubin 1+ H NEGATIVE Urine Urobilinogen 1 NORMAL MG/DL Urine Leukocyte Esterase 3+ H NEGATIVE Urine RBC (Auto) 5+ H NEGATIVE Urine RBC NONE /HPF Urine WBC >100 H /HPF Urine Squamous Epithelial Cells 5-10 /HPF Urine Crystals NONE /LPF Urine Bacteria FEW H /HPF Urine Casts NONE /LPF Urine Mucus NEGATIVE /LPF Urine Culture Indicated YES Sodium Level 134 L 135-145 MMOL/L Potassium Level 3.6 3.6-5.0 MMOL/L Chloride Level 99 98-107 MMOL/L Carbon Dioxide Level 23 21-32 MMOL/L Anion Gap 12 5-14 MMOL/L Blood Urea Nitrogen 21 H 7-18 MG/DL Creatinine 0.85 0.60-1.30 MG/DL Estimat Glomerular Filtration Rate > 60 BUN/Creatinine Ratio 25 Glucose Level 108 H 70-105 MG/DL Lactic Acid Level 1.06 0.50-2.00 MMOL/L Calcium Level 8.7 8.5-10.1 MG/DL Magnesium Level 1.6 L 1.8-2.4 MG/DL Total Bilirubin 1.3 H 0.1-1.0 MG/DL Aspartate Amino Transf (AST/SGOT) 16 5-34 U/L Alanine Aminotransferase (ALT/SGPT) 6 0-55 U/L Alkaline Phosphatase 60 40-136 U/L Troponin I < 0.30 <0.30 NG/ML C-Reactive Protein High Sensitivity 5.57 H 0.00-0.50 MG/DL Total Protein 7.3 6.4-8.2 GM/DL Albumin 3.8 3.2-4.5 GM/DL My Orders Orders - GISELA GARIBAY Ct Head Wo (09/18/17 13:39) Cbc With Automated Diff (09/18/17 13:39) Comprehensive Metabolic Panel (09/18/17 13:39) Hs C Reactive Protein (09/18/17 13:39) Magnesium (09/18/17 13:39) Troponin I (09/18/17 13:39) Saline Lock/Iv-Start (09/18/17 13:39) Ns Iv 1000 Ml (Sodium Chloride 0.9%) (09/18/17 13:39) Lactic Acid Analyzer (09/18/17 13:39) Blood Culture (09/18/17 13:39) Sputum Culture (09/18/17 13:39) Protime With Inr (09/18/17 13:39) Partial Thromboplastin Time (09/18/17 13:39) Chest 1 View, Ap/Pa Only (09/18/17 13:39) O2 (09/18/17 13:39) Saline Lock/Iv-Start (09/18/17 13:39) Saline Lock/Iv-Start (09/18/17 13:39) Ekg Tracing (09/18/17 13:39) Vital Signs Adult Sepsis Patie Q1H (09/18/17 13:39) Ceftriaxone Injection (Rocephin Injectio (09/18/17 13:39) Remove Rings In Anticipation O (09/18/17 13:39) Manual Differential (09/18/17 13:54) Ua Culture If Indicated (09/18/17 14:37) Magnesium 1 Gm/100 Ml Ivpb (Magnesium Vicente (09/18/17 14:45) Urine Culture (09/18/17 13:54) Medications Given in ED Current Medications Medications Dose Ordered Sig/Lori Route Start Time Stop Time Status Last Admin Dose Admin Sodium Chloride 1,000 ml @ 0 mls/hr Q0M ONCE IV 09/18/17 13:39 09/18/17 13:45 DC 09/18/17 14:43 0 MLS/HR Vital Signs/I&O Vital Sign - Last 12Hours 09/18/17 09/18/17 13:40 14:31 Temp 99.5 Pulse 66 Resp 20 B/P (MAP) 166/76 (106) Pulse Ox 95 95 O2 Delivery Nasal Cannula Nasal Cannula O2 Flow Rate 2.00 2.00 Progress Note : Time: 14:02 Progress Note Stroke is less likely given lack of neurologic symptoms however she may have had an occult fall with subdural. More likely is delirium secondary to medication or infection. Since she's not had any recent changes in her medications we would go ahead and kermit infection at this time start her on Rocephin which would cover for a community acquired pneumonia or UTI. Urine sample was fairly cloudy. ECG Initial ECG Impression Date: Sep 18, 2017 Initial ECG Impression Time: 14:04 Initial ECG Rate: 68 Initial ECG Rhythm: Normal Sinus Initial ECG Intervals: Normal Initial ECG Impression: Normal Initial ECG Comparisson: Unchanged Comment No T-wave elevation or depression. No atrial Fibrillation. Diagnostic Imaging Diagonstic Imaging: Xray Plain Films/CT/US/NM/MRI: chest Comments No acute cardiopulmonary processes noted. Reviewed: Reviewed by Me Diagonstic Imaging: CT Plain Films/CT/US/NM/MRI: head Comments VIA [facility]. [place], [place] NAME: [facility] REC#: [id number] PT STATUS: REG ER : 1930 PHYSICIAN: GISELA GARIBAY MD ADMIT DATE: 09/18/17/ER Draft Date of Exam:09/18/17 CT HEAD WO PROCEDURE: CT head without contrast. TECHNIQUE: Multiple contiguous axial images were obtained through the brain without the use of intravenous contrast. INDICATION: Altered mental status. COMPARISON: CT head without contrast 06/15/2017. FINDINGS: Advanced low-attenuation changes throughout the supratentorial and pontine white matter, similar to the prior exam. No CT evidence of an acute territorial infarction. Moderate generalized cerebral and cerebellar parenchymal volume loss. Intracranial vascular calcifications. No intracranial hemorrhage, mass effect, hydrocephalus, or extra-axial fluid collection. Osseous structures are intact. The paranasal sinuses and mastoids are clear. IMPRESSION: 1. No acute intracranial CT findings. 2. Advanced leukoaraiosis is stable. 3. Age-appropriate parenchymal volume loss. Dictated on workstation # [id number] Dict: 09/18/17 1500 Trans: 09/18/17 1507 [id number] Interpreted by: JANNA PEREYRA MD Electronically signed by: Reviewed: Reviewed by Me Departure Communication (Admissions) Time/Spoke to Admitting Phy: 15:[address] Cornelius discussed case lab imaging findings and plan and he is okay with seeing the patient. Impression Impression: Primary Impression: UTI (urinary tract infection) Qualified Codes: N30.00 - Acute cystitis without hematuria Additional Impressions: Acute hypoactive delirium due to another medical condition Hyponatremia Hypomagnesemia Disposition: ADMITTED INPATIENT Condition: Stable Admissions Decision to Admit Reason: Admit from ER (General) Decision to Admit/Date: Sep 18, 2017 Time/Decision to Admit Time: 15:35 Departure-Patient Inst. Referrals: YEVGENIY CORNELIUS MD (PCP/Family) Primary Care Physician Copy Copies To 1: YEVGENIY CORNELIUS MD, TITUS J Sep 18, 2017 13:58
[2017-09-18 14:09] LABS: BASOPHILS % (AUTO) 0 % (0-10); EOSINOPHILS % (AUTO) 0 % (0-10); HEMATOCRIT 37 % (35-52); HEMOGLOBIN 12.1 G/DL (11.5-16.0); LYMPHOCYTES % (AUTO) 6 % (12-44); MEAN CORPUSCULAR HEMOGLOBIN 29 PG (25-34); MEAN CORPUSCULAR HGB CONC 33 G/DL (32-36); MEAN CORPUSCULAR VOLUME 88 FL (80-99); MEAN PLATELET VOLUME 10.7 FL (7.4-10.4); MONOCYTES # (AUTO) 1.9 X 10^3 (0.0-1.0); MONOCYTES % (AUTO) 10 % (0-12); NEUTROPHILS # (AUTO) 15.4 X 10^3 (1.8-7.8); NEUTROPHILS % (AUTO) 84 % (42-75); PLATELET COUNT 208 10^3/uL (130-400); RED BLOOD COUNT 4.15 10^6/uL (4.35-5.85); RED CELL DISTRIBUTION WIDTH 13.8 % (10.0-14.5); WHITE BLOOD COUNT 18.3 10^3/uL (4.3-11.0)
[2017-09-18 14:19] LABS: INR 1.3 (0.8-1.4)
[2017-09-18 14:28] LABS: ALANINE AMINOTRANSFERASE 6 U/L (0-55); ALBUMIN 3.8 GM/DL (3.2-4.5); ALKALINE PHOSPHATASE 60 U/L (40-136); BILIRUBIN,TOTAL 1.3 MG/DL (0.1-1.0); BUN/CREATININE RATIO 25; CALCIUM 8.7 MG/DL (8.5-10.1); CARBON DIOXIDE 23 MMOL/L (21-32); CHLORIDE 99 MMOL/L (98-107); CREATININE SERUM 0.85 MG/DL (0.60-1.30); GFR ESTIMATED > 60; GLUCOSE 108 MG/DL (70-105); MAGNESIUM 1.6 MG/DL (1.8-2.4); POTASSIUM 3.6 MMOL/L (3.6-5.0); SODIUM 134 MMOL/L (135-145); TOTAL PROTEIN 7.3 GM/DL (6.4-8.2)
[2017-09-18 14:36] LABS: BASOPHILS % (MANUAL) 1 %; LYMPHOCYTES % (MANUAL) 4 %; MONOCYTES % (MANUAL) 9 %; NEUTROPHILS % (MANUAL) 86 %; RBC MORPH NORMAL
[2017-09-18] MEDS ORDERED: MAGNESIUM 1 GM/100 ML IVPB 100 ML IV ONE (14:45)
[2017-09-18 14:50] LABS: CLARITY,URINE SLIGHTLY CLOUDY; COLOR,URINE YELLOW; GLUCOSE, URINE (UA) NEGATIVE (NEGATIVE); KETONES,URINE NEGATIVE (NEGATIVE); LEUKOCYTE ESTERASE ,URINE 3+ (NEGATIVE); NITRITE,URINE NEGATIVE (NEGATIVE); PH,URINE 5 (5-9); PROTEIN,URINE 3+ (NEGATIVE); UROBILINOGEN,URINE 1 MG/DL (NORMAL)
[2017-09-18 15:00] LABS: BACTERIA,URINE FEW /HPF; BILIRUBIN,URINE 1+ (NEGATIVE); WBC,URINE >100 /HPF
--- NOTE | 2017-09-18 15:07 | Diagnostic Imaging Report ---
PROCEDURE: CT head without contrast. TECHNIQUE: Multiple contiguous axial images were obtained through the brain without the use of intravenous contrast. INDICATION: Altered mental status. COMPARISON: CT head without contrast 06/15/2017. FINDINGS: Advanced low-attenuation changes throughout the supratentorial and pontine white matter, similar to the prior exam. No CT evidence of an acute territorial infarction. Moderate generalized cerebral and cerebellar parenchymal volume loss. Intracranial vascular calcifications. No intracranial hemorrhage, mass effect, hydrocephalus, or extra-axial fluid collection. Osseous structures are intact. The paranasal sinuses and mastoids are clear. IMPRESSION: 1. No acute intracranial CT findings. 2. Advanced leukoaraiosis is stable. 3. Age-appropriate parenchymal volume loss. Dictated by: Dictated on workstation # [id number]
--- NOTE | 2017-09-18 15:44 | Diagnostic Imaging Report ---
INDICATION: Altered mental status. EXAMINATION: Portable erect AP chest at 3:00 p.m. COMPARISON: There are no prior studies available for comparison. FINDINGS: The heart size is mildly enlarged. The central pulmonary vascularity is prominent but there is no evidence for overt failure or pneumonia. There is no significant pleural effusion identified either. The mediastinum is not widened. The osseous structures are intact. There is severe degenerative disease involving both shoulder joints, particularly the left shoulder joint. IMPRESSION: There is mild cardiomegaly and chronic pulmonary disease but there is no sign of an acute cardiopulmonary abnormality. Dictated by: Dictated on workstation # [id number]
[2017-09-18 17:31] VITALS: BP 156/69
[2017-09-18] MEDS ORDERED: ONDANSETRON 4 MG/2 ML (SDV) Z0FRAN IV PRN (17:45)
[2017-09-18] MEDS ORDERED: CATHETER FLUSH 10 ML SYR IV PRN (17:45)
[2017-09-18] MEDS: 1/2 NS W/KCL 20 MEQ/L 1,000 ML IV SCH (18:06)
--- NOTE | 2017-09-18 18:21 | History & Physicial ---
History of Present Illness History of Present Illness Reason for visit/HPI PT IS AN 87 Y/O FEMALE WHO IS KNOWN TO ME FROM CLINIC. SHE STATES THAT SHE STARTED TO FEEL POORLY ON SATURDAY AND SHE DID NOT WANT HER FAMILY TO BRING HER TO THE HOSPITAL. 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 Date of Admission Sep 18, 2017 at 15:43 Date Seen by Provider: Sep 18, 2017 Time Seen by Provider: 18:00 I consulted on this patient on 09/18/17 18:16 Attending Physician Yevgeniy Cornelius MD Admitting Physician Yevgeniy Cornelius MD Consult Allergies and Home Medications Allergies Coded Allergies: Penicillins (Unverified Allergy, Unknown, 09/12/14) Sulfa (Sulfonamide Antibiotics) (Unverified Allergy, Unknown, RASH, 03/12/15 ) codeine (Unverified Allergy, Unknown, 09/12/14) Home Medications Alendronate Sodium 70 Mg Tablet, 70 MG PO UD, (Reported) Alprazolam 0.25 Mg Tablet, 0.25 MG PO BID PRN for ANXIETY, (Reported) Aspirin 325 Mg Tablet.dr, 325 MG PO BID, (Reported) Atenolol 25 Mg Tablet, 1 EACH PO HS, (Reported) Cholecalciferol 5,000 Unit Capsule, 5,000 UNIT PO DAILY, (Reported) Cholecalciferol (Vitamin D3) 50,000 Unit Capsule, 50,000 UNIT PO UD, (Reported) Citalopram Hydrobromide 10 Mg Tablet, 10 MG PO HS, (Reported) Cyclobenzaprine Hcl 10 Mg Tablet, 1 EACH PO TID PRN for SPASMS, (Reported) Ferrous Sulfate 134 Mg Tablet, 150 MG PO BID, (Reported) Hydrocodone Bit/Acetaminophen 1 Tab Tablet, 1 TAB PO Q4H PRN for PAIN, (Reported ) Meclizine Hcl 25 Mg Tab, 25 MG PO BID, (Reported) Omeprazole 20 Mg Capsule.dr, 20 MG PO DAILY, #30 (Reported) Potassium Chloride 10 Meq Capcr, 20 MEQ PO DAILY@0700, #60 Prescribed by: KINGSLEY MCGINNIS on 09/20/14 0753 Simvastatin 40 Mg Tablet, 40 MG PO HS, (Reported) [Tylenol ES 500 MG] , 500 MG PO PRN PRN for PAIN, (Reported) Past Jcfxdls-Jdxief-Taeltg Hx Patient Social History Marrital Status: (PT LIVES IN [place], BUT TRAVELS TO STAY WITH FAMILY IN [place] ONE TO TWO WEEKS A MONTH, THEN BACK TO [place] THE REST OF THE TIME WITH A VERY ATTENTIVE FAMILY) Living Status: LIVES ALONE, RELATIVES CLOSE Employed/Student: retired Alcohol Use: Denies Use Recreational Drug Use: No Smoking Status: Never a Smoker 2nd Hand Smoke Exposure: No Physical Abuse Screen: No Sexual Abuse: No Recent Foreign Travel: No Contact w/other who traveled: No Recent Hopitalizations: No Recent Infectious Disease Expo: No Immunizations Up To Date Pediatric: No Date of Pneumonia Vaccine: Jun 15, 2014 Date of Influenza Vaccine: May 28, 2018 Surgeries Yes (Right and Left TKR, cataract) Orthopedic (LEFT HUMERUS FRACTURE, LEFT AND RIGHT TOTAL KNEE REPLACEMENTS) Respiratory Yes Currently Using CPAP: No Currently Using BIPAP: No Cardiovascular Yes Atrial Fibrillation, High Cholesterol, Hypertension Neurological Yes (bilateral subdural hemorrage, syncope) Dementia Reproductive System : No Hx Reproductive Disorders: No Genitourinary No Gastrointestinal Yes (Reflux) Musculoskeletal Yes (FX humerus, sacrum, R AND L TKR ) Osteoporosis, Arthritis, Fractures Endocrine History of Endocrine Disorders: No HEENT History of HEENT Disorders: Yes (miniere disease) HEENT Disorders: Cataract Cancer No Psychosocial History of Psychiatric Problem: Yes Behavioral Health Disorders: Anxiety, Depression Integumentary History of Skin or Integumenta: No Blood Transfusions History of Blood Disorders: No Reviewed Nursing Assessment Reviewed/Agree w Nursing PMH: Yes Family Medical History Significant Family History: Heart Disease, Hypertension, Stroke Family Hx: Cardiovascular disease G8 BROTHER Completed stroke 19 MOTHER Myocardial infarction 19 FATHER Constitutional: chills, fever, malaise, weakness EENTM: No vision loss, No hoarseness, No mouth pain, No throat pain Respiratory: No cough, No dyspnea on exertion, No short of breath Cardiovascular: No edema, No palpitations Gastrointestinal: No abdominal pain, No constipation, No diarrhea, No nausea, No vomiting Genitourinary: frequency : No Musculoskeletal: No back pain, muscle weakness (PT WAS UNABLE TO BEAR HER WEIGHT EARLIER TODAY) Psychiatric/Neurological: Anxiety, Depressed, Weakness All Other Systems Reviewed Negative Unless Noted: Yes Physical Exam Vital Signs Vital Signs - First Documented 09/18/17 13:40 Temp 99.5 Pulse 66 Resp 20 B/P (MAP) 166/76 (106) Pulse Ox 95 O2 Delivery Nasal Cannula O2 Flow Rate 2.00 Capillary Refill : Less Than 3 Seconds General Appearance: WD/WN, Mild Distress Eyes: Bilateral Eye Normal Inspection, Bilateral Eye PERRL, Bilateral Eye EOMI HEENT: PERRL/EOMI, TMs Normal, Pharynx Normal Neck: Full Range of Motion, Supple Respiratory: Chest Non Tender, Lungs Clear, Normal Breath Sounds Cardiovascular: Regular Rate, Rhythm, No Edema Gastrointestinal: Normal Bowel Sounds, No Organomegaly, Non Tender, Soft Rectal: Deferred Extremity: Non Tender, No Calf Tenderness, No Pedal Edema Neurologic/Psychiatric: Alert, Other (ORIENTED TO PERSON, NOT PLACE TIME) Skin: Warm/Dry Lymphatic: No Adenopathy Assessment/Plan Assessment and Plan SEPSIS URINARY TRACT INFECTION HYPERTENSION DEPRESSION ANXIETY OSTEOARTHRITIS HYPERLIPIDEMIA ACID REFLUX SEPSIS DUE TO URINARY TRACT INFECTION - CONTINUE WITH CURRENT ANTIBIOTIC REGIMEN - CHANGE/NARROW - PATIENT'S CULTURE IS RETURNED, WAIT ON BLOOD AND URINE CULTURES. HYPERTENSION - RESTART LOSARTAN AND ATENOLOL DEPRESSION AND ANXIETY - PT VERBALIZING TO FAMILY "JUST LET ME " - SHE OFTEN WILL SAY THINGS LIKE THIS WHEN SHE IS FEELING POORLY - BUT HAS SIGNIFICANT ENJOYMENT WHEN SHE IS WITH FAMILY - THEREFORE, WILL RESTART CELEXA, AND DOSE ALPRAZOLAM TONIGHT TO HELP ALLEVIATE HER SITUATIONAL ANXIETY. OSTEOARTHRITIS - RESTART MELOXICAM AND TOPICAL VOLTAREN TO LEFT UPPER ARM. HYPERLIPIDEMIA - RESTART SIMVASTATIN ACID REFLUX - ON TUMS BID AND OMEPRAZOLE - CONTINUE DVT PROPHYLAXIS WITH LOVENOX AND SCD'S GI PROPHYLAXIS WITH OMEPRAZOLE WILL START PHYSICAL THERAPY WHILE PT IS IN THE HOSPITAL. PT IS DNR/DNI PT REQUIRES HOSPITALIZATION -I ANTICIPATE SHE WILL NEED AT LEAST 2-3 MIDNIGHTS IN THE HOSPITAL FOR TREATMENT OF HER CURRENT ILLNESS. I WOULD ANTICIPATE SHE WILL NEED SWING BED OR RESIDENTIAL CARE FOR A SHORT STAY FOR REHABILITATION, STRENGTHENING. Problems: Admission Diagnosis SEPSIS URINARY TRACT INFECTION HYPERTENSION DEPRESSION ANXIETY OSTEOARTHRITIS HYPERLIPIDEMIA ACID REFLUX YEVGENIY CORNELIUS MD Sep 18, 2017 18:21
[2017-09-18] MEDS ORDERED: ALPRAZolam 0.5 MG (XANAX) TAB PO NR (18:45)
[2017-09-18 19:43] VITALS: BP 150/67
[2017-09-18] MEDS: ENOXAPARIN 40 MG/0.4 ML (LOVENOX) SYR SC SCH (19:58)
[2017-09-18] MEDS: ATENOLOL 25 MG (TENORMIN) TAB PO SCH (20:45)
[2017-09-18] MEDS: MECLIZINE 25 MG (ANTIVERT) TAB PO SCH (20:45)
[2017-09-18] MEDS: ALPRAZolam 0.25 MG (XANAX) TAB PO SCH (20:53)
[2017-09-18] MEDS: DICLOFENAC 1% GEL 100 GM (VOLTAREN) TUBE TOP SCH (20:53)
[2017-09-19] MEDS: ACETAMINOPHEN 500 MG TAB (TYLENOL) PO PRN ×2 (00:24→19:47)
[2017-09-19 00:45] VITALS: BP 147/84
[2017-09-19] MEDS: 1/2 NS W/KCL 20 MEQ/L 1,000 ML IV SCH ×3 (01:58→19:26)
[2017-09-19 04:20] VITALS: BP 140/68
[2017-09-19 06:36] LABS: BASOPHILS % (AUTO) 0 % (0-10); EOSINOPHILS # (AUTO) 0.1 10^3/uL (0.0-0.3); EOSINOPHILS % (AUTO) 1 % (0-10); HEMATOCRIT 33 % (35-52); HEMOGLOBIN 10.5 G/DL (11.5-16.0); LYMPHOCYTES # (AUTO) 1.3 X 10^3 (1.0-4.0); LYMPHOCYTES % (AUTO) 10 % (12-44); MEAN CORPUSCULAR HEMOGLOBIN 29 PG (25-34); MEAN CORPUSCULAR HGB CONC 32 G/DL (32-36); MEAN CORPUSCULAR VOLUME 89 FL (80-99); MEAN PLATELET VOLUME 10.5 FL (7.4-10.4); MONOCYTES # (AUTO) 1.3 X 10^3 (0.0-1.0); MONOCYTES % (AUTO) 11 % (0-12); NEUTROPHILS # (AUTO) 9.5 X 10^3 (1.8-7.8); NEUTROPHILS % (AUTO) 78 % (42-75); PLATELET COUNT 172 10^3/uL (130-400); RED BLOOD COUNT 3.67 10^6/uL (4.35-5.85); RED CELL DISTRIBUTION WIDTH 13.9 % (10.0-14.5); WHITE BLOOD COUNT 12.2 10^3/uL (4.3-11.0)
[2017-09-19] MEDS: PANTOPRAZOLE 20 MG TABLET (PROTONIX) PO SCH (07:02)
[2017-09-19 07:04] LABS: BUN/CREATININE RATIO 20; CALCIUM 8.3 MG/DL (8.5-10.1); CARBON DIOXIDE 22 MMOL/L (21-32); CHLORIDE 105 MMOL/L (98-107); CREATININE SERUM 0.74 MG/DL (0.60-1.30); GFR ESTIMATED > 60; GLUCOSE 99 MG/DL (70-105); MAGNESIUM 1.9 MG/DL (1.8-2.4); POTASSIUM 3.5 MMOL/L (3.6-5.0); SODIUM 134 MMOL/L (135-145)
[2017-09-19 08:30] VITALS: BP 156/70
--- NOTE | 2017-09-19 08:30 | Progress Note (SOAP) ---
Subjective Time Seen by Provider: 08:24 Subjective/Events-last exam Patient still confused. Patient does not know where she is this morning. Patient lives at home alone. Sepsis. UTI. Hypertension. Depression. Anxiety. Hyperlipidemia Objective Exam Vital Signs Date Time Temp Pulse Resp B/P (MAP) Pulse Ox O2 Delivery O2 Flow Rate FiO2 09/19/17 04:20 98.7 64 17 140/68 (92) 94 Room Air 09/19/17 01:58 99.7 09/19/17 00:45 101.3 65 19 147/84 (105) 96 Room Air 09/19/17 00:24 101.3 09/18/17 23:00 Nasal Cannula 2.00 09/18/17 20:45 Room Air 09/18/17 19:43 98.9 62 18 150/67 (94) 94 09/18/17 17:44 Room Air 09/18/17 17:31 99.0 62 18 156/69 (98) 96 09/18/17 17:05 63 20 96 09/18/17 14:31 95 Nasal Cannula 2.00 09/18/17 13:40 99.5 66 20 166/76 (106) 95 Nasal Cannula 2.00 I & O 09/19/17 07:00 Intake Total 3040 ml Output Total 900 ml Balance 2140 ml Capillary Refill : Less Than 3 Seconds General Appearance: No Apparent Distress HEENT: Normal ENT Inspection Neck: Normal Inspection Respiratory: Chest Non Tender, Lungs Clear, Normal Breath Sounds, No Accessory Muscle Use, No Respiratory Distress Cardiovascular: Regular Rate, Rhythm, No Murmur Gastrointestinal: non tender, soft Results Lab Laboratory Tests 09/18/17 13:54 09/19/17 06:25 Laboratory Tests 09/18/17 13:54: White Blood Count 18.3H, Red Blood Count 4.15L, Hemoglobin 12.1, Hematocrit 37, Mean Corpuscular Volume 88, Mean Corpuscular Hemoglobin 29, Mean Corpuscular Hemoglobin Concent 33, Red Cell Distribution Width 13.8, Platelet Count 208, Mean Platelet Volume 10.7H, Neutrophils (%) (Auto) 84H, Lymphocytes (%) (Auto) 6L, Monocytes (%) (Auto) 10, Eosinophils (%) (Auto) 0, Basophils (%) (Auto) 0, Neutrophils # (Auto) 15.4H, Lymphocytes # (Auto) 1.0, Monocytes # (Auto) 1.9H, Eosinophils # (Auto) 0.0, Basophils # (Auto) 0.0, Neutrophils % (Manual) 86, Lymphocytes % (Manual) 4, Monocytes % (Manual) 9, Basophils % (Manual) 1, Blood Morphology Comment NORMAL, Prothrombin Time 16.0H, INR Comment 1.3, Activated Partial Thromboplast Time 38H, Urine Color YELLOW, Urine Clarity SLIGHTLY CLOUDY , Urine pH 5, Urine Specific [place] 1.015L, Urine Protein 3+H, Urine Glucose ( UA) NEGATIVE, Urine Ketones NEGATIVE, Urine Nitrite NEGATIVE, Urine Bilirubin 1+ H, Urine Urobilinogen 1, Urine Leukocyte Esterase 3+H, Urine RBC (Auto) 5+H, Urine RBC NONE, Urine WBC >100H, Urine Squamous Epithelial Cells 5-10, Urine Crystals NONE, Urine Bacteria FEWH, Urine Casts NONE, Urine Mucus NEGATIVE, Urine Culture Indicated YES, Sodium Level 134L, Potassium Level 3.6, Chloride Level 99, Carbon Dioxide Level 23, Anion Gap 12, Blood Urea Nitrogen 21H, Creatinine 0.85, Estimat Glomerular Filtration Rate > 60, BUN/Creatinine Ratio 25, Glucose Level 108H, Lactic Acid Level 1.06, Calcium Level 8.7, Magnesium Level 1.6L, Total Bilirubin 1.3H, Aspartate Amino Transf (AST/SGOT) 16, Alanine Aminotransferase (ALT/SGPT) 6, Alkaline Phosphatase 60, Troponin I < 0.30, C- Reactive Protein High Sensitivity 5.57H, Total Protein 7.3, Albumin 3.8 09/19/17 06:25: White Blood Count 12.2H, Red Blood Count 3.67L, Hemoglobin 10.5L, Hematocrit 33L , Mean Corpuscular Volume 89, Mean Corpuscular Hemoglobin 29, Mean Corpuscular Hemoglobin Concent 32, Red Cell Distribution Width 13.9, Platelet Count 172, Mean Platelet Volume 10.5H, Neutrophils (%) (Auto) 78H, Lymphocytes (%) (Auto) 10L, Monocytes (%) (Auto) 11, Eosinophils (%) (Auto) 1, Basophils (%) (Auto) 0, Neutrophils # (Auto) 9.5H, Lymphocytes # (Auto) 1.3, Monocytes # (Auto) 1.3H, Eosinophils # (Auto) 0.1, Basophils # (Auto) 0.0, Sodium Level 134L, Potassium Level 3.5L, Chloride Level 105, Carbon Dioxide Level 22, Anion Gap 7, Blood Urea Nitrogen 15, Creatinine 0.74, Estimat Glomerular Filtration Rate > 60, BUN/ Creatinine Ratio 20, Glucose Level 99, Calcium Level 8.3L, Magnesium Level 1.9 Assessment/Plan Assessment/Plan Assess & Plan/Chief Complaint UTI. Sepsis. Hypertension. Confusion. Depression. Anxiety. Hyperlipidemia. Clinical Quality Measures DVT/VTE Risk/Contraindication: Risk Factor Score Per Nursin RFS Level Per Nursing on Admit: 4+=Very High PELON FLORES DO Sep 19, 2017 08:30
[2017-09-19] MEDS: cefTRIAXone 1,000 MG/NS 50 ML IVPB IV SCH ×2 (09:26)
[2017-09-19] MEDS: MECLIZINE 25 MG (ANTIVERT) TAB PO SCH ×2 (09:26→19:48)
[2017-09-19] MEDS: LOSARTAN 50 MG (COZAAR) TAB PO SCH (09:27)
[2017-09-19] MEDS ORDERED: MECL12.579 PO (09:47)
[2017-09-19] MEDS ORDERED: LOSA50TA36 PO (09:47)
[2017-09-19] MEDS ORDERED: SIMV40TA4 PO (09:47)
[2017-09-19] MEDS ORDERED: ALPR0.254 PO (09:47)
[2017-09-19] MEDS ORDERED: MELO15TA39 PO (09:47)
[2017-09-19] MEDS ORDERED: OMEP20CA12 PO (09:47)
[2017-09-19] MEDS ORDERED: TRAM50TA2 PO (09:47)
[2017-09-19] MEDS ORDERED: ATEN25TA PO (09:47)
[2017-09-19] MEDS ORDERED: CITA20TA12 PO (09:47)
[2017-09-19] MEDS ORDERED: POTA10CA43 PO (09:47)
[2017-09-19] MEDS ORDERED: LOPE-145 PO (09:48)
[2017-09-19] MEDS ORDERED: ASPI-983 PO (09:54)
[2017-09-19] MEDS ORDERED: ACET-2267 PO (09:54)
[2017-09-19] MEDS ORDERED: CHOL5000 PO (09:55)
[2017-09-19] MEDS ORDERED: CALC300T4 PO (09:55)
[2017-09-19] MEDS ORDERED: ACHD5005 PO (09:55)
[2017-09-19] MEDS ORDERED: DICL100G18 TP (09:55)
[2017-09-19] MEDS: DICLOFENAC 1% GEL 100 GM (VOLTAREN) TUBE TOP SCH ×4 (11:22→19:49)
[2017-09-19] MEDS: ALPRAZolam 0.25 MG (XANAX) TAB PO SCH ×2 (11:22→19:48)
[2017-09-19] MEDS: LACTOBACILLUS Acidoph/Bulgar (LACTINEX/FLORANEX) TAB PO SCH ×2 (11:23→19:25)
--- NOTE | 2017-09-19 12:10 | Physical Therapy Evaluation ---
PT Evaluation-General Medical Diagnosis Admission Date Sep 18, 2017 at 15:43 Medical Diagnosis: UTI/delirium Onset Date: Sep 18, 2017 Therapy Diagnosis Therapy Diagnosis: generalized weakness/debility Height/Weight Height (Feet): 5 Height (Inches): 5.00 Weight (Pounds): 152 Weight (Ounces): 0.0 Precautions Precautions/Isolations: Fall Prevention Weight Bear Status Right Lower Extremity: Right Full Weight Bearing Left Lower Extremity: Left Full Weight Bearing Referral Physician: Krysta Reason for Referral: Evaluation/Treatment Medical History Pertinent Medical History: Atrial Fib, Arthritis, HTN Additional Medical History fall with subdural hematoma Current History ED with confusion and weakness Reviewed History: Yes Social History Home: Apartment Current Living Status: Alone (family is there during day) Entry Into Home: Level Entry Prior/Core FIM Prior Level of Function Functional [place] Measure 0=Not Assessed/NA 4=Minimal Assistance 1=Total Assistance 5=Supervision or Setup 2=Maximal Assistance 6=Modified [place] 3=Moderate Assistance 7=Complete [place] Bed Mobility: 5 Transfers (B,C,W/C) (FIM): 5 Gait: 5 PT Evaluation-Current Subjective Patient just complete with OT and agrees to PT. Patient is very confused. Pain Numeric Pain Scale: 0-No Pain Location: No Pain Reported Objective Patient Orientation: Confused Problem Solving: Poor Attachments: IV ROM/Strength ROM Lower Extremities bilateral LE WNL Strength Lower Extremities bilateral LE 4-/5 grossly Integumentary/Posture Integumentary refer to nursing notes Bowel Incontinence: No Bladder Incontinence: Yes Posture WFL Neuromuscular (Tone, Coordination, Reflexes) diminished coordination due to dementia Sensory Vision: Wears Glasses Hearing: Impaired Sensation Right Lower Extremit: Intact Sensation Left Lower Extremity: Intact Transfers Functional [place] Measure 0=Not Assessed/NA 4=Minimal Assistance 1=Total Assistance 5=Supervision or Setup 2=Maximal Assistance 6=Modified [place] 3=Moderate Assistance 7=Complete [place] Transfers (B, C, W/C) (FIM): 4 Scootin Rollin Supine to/from Sit: 4 Sit to/from Stand: 4 Gait Mode of Locomotion: Walk Anticipated Mode of Locomotion: Walk Gait (FIM): 4 Distance (FIM): 3=150 ft Distance: 250' Gait Level of Assist: 4 Gait Persons Needed: 1 Gait Assistive Device: FWW Comments/Gait Description shuffle gait sequence Balance Sitting Static: Normal Sitting Dynamic: Normal Standing Static: Fair Standing Dynamic: Fair Assessment/Needs 87 y.o. female, will benefit from short term skilled PT to address functional mobility to improve current LOF. Patient is limited due to dementia and has difficulty sequencing and following simple direction. Rehab Potential: Fair PT Bankruptcy Manager Goals Intermediate Goals PT Intermediate Goals Time Frame: Sep 26, 2017 Transfers (B,C,W/C) (FIM): 5 Gait (FIM): 5 Gait distance (FIM): 3=150 ft Gait Level of Assist: 5 Gait Assistive Device: FWW PT Plan Problem List Problem List: Activity Tolerance, Functional Strength, Safety, Balance, Gait, Transfer, Bed Mobility Treatment/Plan Treatment Plan: Continue Plan of Care Treatment Plan: Bed Mobility, Education, Functional Activity [place], Functional Strength, Gait, Safety, Therapeutic Exercise, Transfers Treatment Duration: Sep 26, 2017 Frequency: 6 times per week Estimated Hrs Per Day: .25 hour per day Patient and/or Family Agrees t: Yes Safety Risks/Education Patient Education: Safety Issues Teaching Recipient: Patient Teaching Methods: Discussion Response to Teaching: Reinforcement Needed Discharge Recommendations Therapy D/C Recommendations: Half-Way Placement Time/GCodes Time In: 1140 Time Out: 1200 Total Billed Treatment Time: 20 Total Billed Treatment 1 visit EVModC 20 min G Codes Necessary: ELMA Pham PT Sep 19, 2017 12:10
[2017-09-19 12:30] VITALS: BP 146/70
--- NOTE | 2017-09-19 14:39 | Occupational Therapy Eval ---
OT Evaluation-General/PLF Medical Diagnosis Admission Date Sep 18, 2017 at 15:43 Medical Diagnosis: UTI/delirium Onset Date: Sep 18, 2017 Therapy Diagnosis Therapy Diagnosis: Decreased ADL skills Height/Weight Height (Feet): 5 Height (Inches): 5.00 Weight (Pounds): 152 Weight (Ounces): 0.0 Precautions Precautions/Isolations: Fall Prevention Safety Interventions: None Weight Bear Status Weight Bearing Restriction: Weight Bearing/Tolerated Referral Physician: Krysta Referral Reason: Activity Tolerance, Self Care, Evaluation/Treatment, Strengthening/ROM Medical History Pertinent Medical History: Atrial Fib, Arthritis, HTN Additional Medical History bilateral TKR, Left humerus fx, bilateral subdural hemorrhage, miniere disease, anxiety. Current History Pt. lives between her home and that of her son and daughter in law. Pt. became weak at home and was taken to ER. Found to be septic with UTI. Reviewed History: Yes Social History Home: Apartment Current Living Status: Alone (family is there during day) Entry Into Home: Level Entry ADL-Prior Level of Function ADL PLOF Comments Daughter in law in room and states that pt. was mainly independent, but that she was with pt. when she showered. Pt. would stay a couple of weeks at her daughter in laws home, and then go to hers. DME/Equipment: Bath Chair, Tub/Shower DME/Equipment Comments Pt. uses a walker with seat and also has a cane. Drive Self: No OT Current Status Subjective Pt. does not report pain level. Appearance Pt. in bed. Daughter in law in room. Daughter in law gives history. Mental Status/Objective Patient Orientation: Unable to Assess Pt. is somewhat confused. Pt. requires multiple cues to complete tasks. Current Glasses/Contacts: Yes Hand Dominance: Right Upper Extremity ROM Pt. has limited shoulder range on left side due to old fx. WFL on right side. ADL-Treatment Functional [place] Measure 0=Not Assessed/NA 4=Minimal Assistance 1=Total Assistance 5=Supervision or Setup 2=Maximal Assistance 6=Modified [place] 3=Moderate Assistance 7=Complete IndependenceIRFPAI Quality Coding Scale 6 Independent with activity with or without an assistive device 5 Patient requires set up or clean up by helper. Patient completes activity by themselves 4 Supervision or touching assist (CGA). [place] provide cues , steadying assist 3 The helper provides less than half the effort to complete the activity 2 The helper provides more than half the effort to complete the activity 1 Dependent. The helper does all the effort to complete an activity 7 Patient refused to complete or attempt activity 9 The patient did not perform the activity before the current illness or injury 88 Not attempted due to Medical conditions or safety concerns Grooming (FIM): 3 (Mod assist to adequately brush hair.) Bathing (FIM): 2 (Pt. required max cues and then assist to safely bathe self. Pt. showered off and stated that she was done. Pt. then required cues to bathe each part. OT cleansed rear janna area and legs for pt.) Lower Body Dressing (FIM): 4 (SBA to doff socks and min assist to don socks. No other street clothing available.) Toileting (FIM): 3 (Pt. had BM in toilet and was able to cleanse self. However , required overall moderate assist to cleanse appropriately.) Transfers (B, C, W/C) (FIM): 4 Toilet/Commode Transfer (FIM): 4 Shower Transfer (FIM): 4 Other Treatments Pt. is somewhat confused and requires constant cues for safety and mobility. Pt. agreed to shower. However, was not safe to be left alone. Noted tremor in left hand and daughter in law states that this is new. Pt. will also "overshoot " when eating per daughter in law. After shower, PT came into room to ambulate with pt. All needs made for ADL tasks by this therapist. Education OT Patient Education: Correct positioning, Modified ADL techniques, Progress toward Goal/Update tx plan, Purpose of tx/functional activities, Reviewed precautions, Rehab process, Safety issues, Transfer techniques Teaching Recipient: Patient, Family Teaching Methods: Demonstration, Discussion Response to Teaching: Verbalize Understanding, Return Demonstration OT Short Term Goals Short Term Goals Time Frame: Sep 26, 2017 Eating(FIM): 5 Grooming(FIM): 5 Bathing(FIM): 4 Upper Body Dressing(FIM): 5 Lower Body Dressing(FIM): 4 Toileting(FIM): 5 Transfers (B,C,W/C) (FIM): 5 Toilet/Commode Transfer(FIM): 5 Additional Short Term Goals: 1-Demonstrate ADL Tasks, 2-Verbalize Understanding , 3-ImproveStrength/[place] 1=Demonstrate adherence to instructed precautions during ADL tasks. 2=Patient will verbalize/demonstrate understanding of assistive devices/ modifications for ADL. 3=Patient will improve strength/tolerance for activity to enable patient to perform ADL's. OT Fdc Goals Fdc Goals Time Frame: Oct 03, 2017 Eating (FIM): 6 Grooming(FIM): 5 Bathing(FIM): 5 Upper Body Dressing(FIM): 5 Lower Body Dressing(FIM): 5 Toileting(FIM): 5 Transfers (B,C,W/C) (FIM): 5 Toilet/Commode Transfer(FIM): 5 Shower Transfer(FIM): 5 Additional Goals: 1-Demonstrate ADL Tasks, 2-Verbalize Understanding, 3- ImproveStrength/[place] 1=Demonstrate adherence to instructed precautions during ADL tasks. 2=Patient will verbalize/demonstrate understanding of assistive devices/ modifications for ADL. 3=Patient will improve strength/tolerance for activity to enable patient to perform ADL's. OT Education/Plan Problem List/Assessment Assessment: Decreased Activ Tolerance, Decreased UE Strength, Dependent Transfers, Impaired Bed Mobility, Impaired Cognition, Impaired Coordination, Impaired Funct Balance, Impaired I ADL's, Impaired Self-Care Skills, Restricted Funct UE ROM Discharge Recommendations Plan/Recommendations: Continue POC Therapy D/C Recommendations: 24 hr Supervision, Home w/ Family Support, Occupational Therapy Home Care Equpiment Recommendations-D/C: Extended Bath Bench Barriers to Progress Confusion Target Placement Home with family Treatment Plan/Plan of Care Treatment,Training & Education: Yes Patient would benefit from OT for education, treatment and training to promote independence in ADL's, mobility, safety and/or upper extremity function for ADL' s. Plan of Care: ADL Retraining, Caregiver Training, Functional Mobility, UE Funct Exercise/Act Treatment Duration: Oct 03, 2017 Frequency: 5 times per week Estimated Hrs Per Day: .25 hour per day Agreement: Yes Rehab Potential: Fair Time/GCodes Start Time: 11:15 Stop Time: 11:50 Total Time Billed (hr/min): 35 Billed Treatment Time 1, EVH x 15minutes, ADL x 20minutes STERLING CORTES OT Sep 19, 2017 14:39
[2017-09-19 16:00] VITALS: BP 164/72
[2017-09-19] MEDS: ENOXAPARIN 40 MG/0.4 ML (LOVENOX) SYR SC SCH (19:26)
[2017-09-19] MEDS: LOPERAMIDE 2 MG (IMODIUM) CAP PO PRN (19:45)
[2017-09-19 19:46] VITALS: BP 187/75
[2017-09-19] MEDS: ATENOLOL 25 MG (TENORMIN) TAB PO SCH (19:48)
[2017-09-20] VITALS: BP 143/74
[2017-09-20] MEDS: 1/2 NS W/KCL 20 MEQ/L 1,000 ML IV SCH ×3 (03:38→20:11)
[2017-09-20 04:00] VITALS: BP 198/86
[2017-09-20 06:17] LABS: BASOPHILS % (AUTO) 0 % (0-10); EOSINOPHILS # (AUTO) 0.2 10^3/uL (0.0-0.3); EOSINOPHILS % (AUTO) 2 % (0-10); HEMATOCRIT 33 % (35-52); HEMOGLOBIN 10.6 G/DL (11.5-16.0); LYMPHOCYTES # (AUTO) 1.4 X 10^3 (1.0-4.0); LYMPHOCYTES % (AUTO) 15 % (12-44); MEAN CORPUSCULAR HEMOGLOBIN 29 PG (25-34); MEAN CORPUSCULAR HGB CONC 32 G/DL (32-36); MEAN CORPUSCULAR VOLUME 90 FL (80-99); MEAN PLATELET VOLUME 11.2 FL (7.4-10.4); MONOCYTES # (AUTO) 1.1 X 10^3 (0.0-1.0); MONOCYTES % (AUTO) 13 % (0-12); NEUTROPHILS # (AUTO) 6.3 X 10^3 (1.8-7.8); NEUTROPHILS % (AUTO) 70 % (42-75); PLATELET COUNT 172 10^3/uL (130-400); RED BLOOD COUNT 3.66 10^6/uL (4.35-5.85); RED CELL DISTRIBUTION WIDTH 14.1 % (10.0-14.5)
[2017-09-20 06:35] LABS: BUN/CREATININE RATIO 16; CALCIUM 8.5 MG/DL (8.5-10.1); CARBON DIOXIDE 22 MMOL/L (21-32); CHLORIDE 110 MMOL/L (98-107); CREATININE SERUM 0.76 MG/DL (0.60-1.30); GFR ESTIMATED > 60; GLUCOSE 87 MG/DL (70-105); POTASSIUM 3.9 MMOL/L (3.6-5.0); SODIUM 144 MMOL/L (135-145)
[2017-09-20 08:00] VITALS: BP 172/68
--- NOTE | 2017-09-20 08:36 | Progress Note (SOAP) ---
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 HER [id number] IS A NURSE AT THE HOSPITAL AND REPORTS THAT SHE HAD SOME CLEARING OF HER MENTATION YESTERDAY AT [facility], THEN STARTED TO HAVE CONFUSION AGAIN AROUND 5PM. PER PHYSICAL THERAPY - PT IS SLIGHTLY UNSTEADY ON HER FEET, AND IS CONFUSED FOR THEM, BUT FOLLOWS COMMANDS. Review of Systems General: Fatigue, Malaise HEENT: No Head Aches Pulmonary: No Dyspnea, No Cough Cardiovascular: No: Chest Pain, Palpitations Gastrointestinal: No: Nausea, Abdominal Pain Genitourinary: Frequency Neurological: Weakness, Confusion Objective Exam Vital Signs Date Time Temp Pulse Resp B/P (MAP) Pulse Ox O2 Delivery O2 Flow Rate FiO2 09/20/17 04:00 97.5 59 16 198/86 (123) 95 Room Air 09/20/17 00:00 98.3 65 17 143/74 (97) 94 Room Air 09/19/17 21:29 100.2 09/19/17 21:27 100.2 09/19/17 19:47 101.2 09/19/17 19:46 102.4 66 16 187/75 (112) 93 Room Air 09/19/17 16:00 100.6 69 21 164/72 (102) 92 Room Air 09/19/17 12:30 98.6 54 18 146/70 (95) 95 Room Air I & O 09/20/17 07:00 Intake Total 2660 ml Output Total 1100 ml Balance 1560 ml Capillary Refill : Less Than 3 Seconds General Appearance: No Apparent Distress, WD/WN HEENT: PERRL/EOMI, Pharynx Normal Neck: Full Range of Motion, Supple Respiratory: Chest Non Tender, Lungs Clear, Normal Breath Sounds, No Accessory Muscle Use Cardiovascular: Regular Rate, Rhythm, No Edema Gastrointestinal: normal bowel sounds, non tender, soft, no organomegaly, no pulsatile mass Extremity: Normal Capillary Refill, Pedal Edema (TRACE) Neurologic/Psychiatric: Alert, Other (ORIENTED TO PERSON - NOT PLACE OR TIME - FLAT AFFECT) Skin: Normal Color Lymphatic: No Adenopathy Results Lab Laboratory Tests 09/20/17 05:40: White Blood Count 9.0, Red Blood Count 3.66L, Hemoglobin 10.6L, Hematocrit 33L, Mean Corpuscular Volume 90, Mean Corpuscular Hemoglobin 29, Mean Corpuscular Hemoglobin Concent 32, Red Cell Distribution Width 14.1, Platelet Count 172, Mean Platelet Volume 11.2H, Neutrophils (%) (Auto) 70, Lymphocytes (%) (Auto) 15 , Monocytes (%) (Auto) 13H, Eosinophils (%) (Auto) 2, Basophils (%) (Auto) 0, Neutrophils # (Auto) 6.3, Lymphocytes # (Auto) 1.4, Monocytes # (Auto) 1.1H, Eosinophils # (Auto) 0.2, Basophils # (Auto) 0.0, Sodium Level 144, Potassium Level 3.9, Chloride Level 110H, Carbon Dioxide Level 22, Anion Gap 12, Blood Urea Nitrogen 12, Creatinine 0.76, Estimat Glomerular Filtration Rate > 60, BUN/ Creatinine Ratio 16, Glucose Level 87, Calcium Level 8.5 Microbiology 09/18/17 Blood Culture - Preliminary, Resulted No growth 09/18/17 Urine Culture - Preliminary, Resulted NO GROWTH Assessment/Plan Assessment/Plan Assess & Plan/Chief Complaint SEPSIS URINARY TRACT INFECTION HYPERTENSION DEPRESSION ANXIETY OSTEOARTHRITIS HYPERLIPIDEMIA ACID REFLUX SEPSIS RESOLVED URINARY TRACT INFECTION - CONTINUE WITH CURRENT ANTIBIOTIC REGIMEN - CHANGE/ NARROW - PATIENT'S CULTURE IS RETURNED, BLOOD CULTURES NEGATIVE - URINE NO GROWTH THUS FAR HYPERTENSION - RESTARTED LOSARTAN AND ATENOLOL DEPRESSION AND ANXIETY - PT VERBALIZING TO FAMILY "JUST LET ME " - SHE OFTEN WILL SAY THINGS LIKE THIS WHEN SHE IS FEELING POORLY - BUT HAS SIGNIFICANT ENJOYMENT WHEN SHE IS WITH FAMILY - THEREFORE, WILL RESTART CELEXA, AND DOSE ALPRAZOLAM TONIGHT TO HELP ALLEVIATE HER SITUATIONAL ANXIETY. OSTEOARTHRITIS - RESTARTED MELOXICAM AND TOPICAL VOLTAREN TO LEFT UPPER ARM. HYPERLIPIDEMIA - RESTARTED SIMVASTATIN ACID REFLUX - ON TUMS BID AND OMEPRAZOLE - CONTINUE DVT PROPHYLAXIS WITH LOVENOX AND SCD'S GI PROPHYLAXIS WITH OMEPRAZOLE CONTINUE WITH PHYSICAL THERAPY WHILE PT IS IN THE HOSPITAL. PT IS DNR/DNI PT REQUIRES HOSPITALIZATION -I ANTICIPATE SHE WILL NEED AT LEAST 2-3 MIDNIGHTS IN THE HOSPITAL FOR TREATMENT OF HER CURRENT ILLNESS. I WOULD ANTICIPATE SHE WILL NEED SWING BED OR SENIOR CARE CARE FOR A SHORT STAY FOR REHABILITATION, STRENGTHENING. Clinical Quality Measures DVT/VTE Risk/Contraindication: Risk Factor Score Per Nursin RFS Level Per Nursing on Admit: 4+=Very High YEVGENIY BRAVO MD Sep 20, 2017 08:36
--- NOTE | 2017-09-20 08:49 | Occupational Ther Daily Note ---
OT Current Status-Daily Note Subjective Pt lying in bed awake. Pt agreed to therapy. Pt thought she was in latter-day and wasn't dressed for it. Attempted to reorient pt. Mental Status/Objective Patient Orientation: Person, Confused Functional [place] Measure 0=Not Assessed/NA 4=Minimal Assistance 1=Total Assistance 5=Supervision or Setup 2=Maximal Assistance 6=Modified [place] 3=Moderate Assistance 7=Complete [place] Attachments: IV ADL-Treatment Pt was able to go from supine to sitting EOB by self with SBA for safety. Sitting on EOB donned socks. Pt ambulated with CGA using FWW to bathroom and transferred to toilet with CGA. Pt able to don underwear after set up. Pt cleansed self with CGA for safety. Pt then ambulated to sink to wash hands and brush hair, declined to brush teeth, SBA. Pt ambulated back to recliner. After therapy, pt sitting in recliner with safety measures in place. All needs met in room. Grooming (FIM): 5 Lower Body Dressing (FIM): 5 Toileting (FIM): 5 Toilet/Commode Transfer (FIM): 4 OT Short Term Goals Short Term Goals Time Frame: Sep 26, 2017 Eating(FIM): 5 Grooming(FIM): 5 Bathing(FIM): 4 Upper Body Dressing(FIM): 5 Lower Body Dressing(FIM): 4 Toileting(FIM): 5 Transfers (B,C,W/C) (FIM): 5 Toilet/Commode Transfer(FIM): 5 Additional Short Term Goals: 1-Demonstrate ADL Tasks, 2-Verbalize Understanding , 3-ImproveStrength/[place] 1=Demonstrate adherence to instructed precautions during ADL tasks. 2=Patient will verbalize/demonstrate understanding of assistive devices/ modifications for ADL. 3=Patient will improve strength/tolerance for activity to enable patient to perform ADL's. OT Halfway Goals Utility Operator Yarn Goals Time Frame: Oct 03, 2017 Eating (FIM): 6 Grooming(FIM): 5 Bathing(FIM): 5 Upper Body Dressing(FIM): 5 Lower Body Dressing(FIM): 5 Toileting(FIM): 5 Transfers (B,C,W/C) (FIM): 5 Toilet/Commode Transfer(FIM): 5 Shower Transfer(FIM): 5 Additional Goals: 1-Demonstrate ADL Tasks, 2-Verbalize Understanding, 3- ImproveStrength/[place] 1=Demonstrate adherence to instructed precautions during ADL tasks. 2=Patient will verbalize/demonstrate understanding of assistive devices/ modifications for ADL. 3=Patient will improve strength/tolerance for activity to enable patient to perform ADL's. OT Education/Plan Discharge Recommendations Plan/Recommendations: Continue POC Treatment Plan/Plan of Care Patient would benefit from OT for education, treatment and training to promote independence in ADL's, mobility, safety and/or upper extremity function for ADL' s. Plan of Care: ADL Retraining, Caregiver Training, Functional Mobility, UE Funct Exercise/Act Treatment Duration: Oct 03, 2017 Frequency: 5 times per week Estimated Hrs Per Day: .25 hour per day Agreement: Yes Rehab Potential: Fair Time/GCodes Start Time: 08:21 Stop Time: 08:45 Total Time Billed (hr/min): 24 Billed Treatment Time 1 visit-ADL 2 (25 min) ARAM LERNER Sep 20, 2017 08:49
[2017-09-20] MEDS: PANTOPRAZOLE 20 MG TABLET (PROTONIX) PO SCH (08:57)
[2017-09-20] MEDS: LOSARTAN 50 MG (COZAAR) TAB PO SCH (08:57)
[2017-09-20] MEDS: ALPRAZolam 0.25 MG (XANAX) TAB PO SCH ×2 (08:57→20:13)
[2017-09-20] MEDS: MECLIZINE 25 MG (ANTIVERT) TAB PO SCH ×2 (08:57→20:12)
[2017-09-20] MEDS: cefTRIAXone 1,000 MG/NS 50 ML IVPB IV SCH ×2 (08:58)
[2017-09-20] MEDS: DICLOFENAC 1% GEL 100 GM (VOLTAREN) TUBE TOP SCH ×4 (08:58→20:14)
[2017-09-20] MEDS: LACTOBACILLUS Acidoph/Bulgar (LACTINEX/FLORANEX) TAB PO SCH ×3 (08:58→16:57)
--- NOTE | 2017-09-20 09:22 | Physical Therapy Daily Note ---
PT Daily Note-Current Subjective Patient agrees to PT. No c/o. Pain Numeric Pain Scale: 0-No Pain Location: No Pain Reported Mental Status Patient Orientation: Confused Transfers Functional [place] Measure 0=Not Assessed/NA 4=Minimal Assistance 1=Total Assistance 5=Supervision or Setup 2=Maximal Assistance 6=Modified [place] 3=Moderate Assistance 7=Complete IndependenceIRFPAI Quality Coding Scale 6 Independent with activity with or without an assistive device 5 Patient requires set up or clean up by helper. Patient completes activity by themselves 4 Supervision or touching assist (CGA). [place] provide cues , steadying assist 3 The helper provides less than half the effort to complete the activity 2 The helper provides more than half the effort to complete the activity 1 Dependent. The helper does all the effort to complete an activity 7 Patient refused to complete or attempt activity 9 The patient did not perform the activity before the current illness or injury 88 Not attempted due to Medical conditions or safety concerns Transfers (B, C, W/C) (FIM): 5 Scootin Sit to/from Stand: 5 Weight Bearing Right Lower Extremity: Right Full Weight Bearing Left Lower Extremity: Left Full Weight Bearing Gait Training Gait (FIM): 5 Distance (FIM): 3=150 ft Distance: 400' Gait Level of Assist: 5 Gait Assistive Device: FWW safe and functional/ not LOB Assessment Patient is up in recliner with chair alarm activated. RN present. PT Short Term Goals Short Term Goals Transfers (B,C,W/C) (FIM): 5 PT Organ Tuner Electronic Goals Organ Tuner Electronic Goals PT Senior Living Goals Time Frame: Sep 26, 2017 Transfers (B,C,W/C) (FIM): 5 Gait (FIM): 5 Gait distance (FIM): 3=150 ft Gait Level of Assist: 5 Gait Assistive Device: FWW PT Plan Treatment/Plan Treatment Plan: Continue Plan of Care Treatment Plan: Bed Mobility, Education, Functional Activity [place], Functional Strength, Gait, Safety, Therapeutic Exercise, Transfers Treatment Duration: Sep 26, 2017 Frequency: 6 times per week Estimated Hrs Per Day: .25 hour per day Patient and/or Family Agrees t: Yes Time/GCodes Time In: 850 Time Out: 902 Total Billed Treatment Time: 12 Total Billed Treatment 1 visit GT 12 min ELMA POON PT Sep 20, 2017 09:22
[2017-09-20 12:00] VITALS: BP 142/70
[2017-09-20 14:14] LABS: BILIRUBIN,URINE NEGATIVE (NEGATIVE); CLARITY,URINE CLEAR; COLOR,URINE YELLOW; GLUCOSE, URINE (UA) NEGATIVE (NEGATIVE); KETONES,URINE NEGATIVE (NEGATIVE); LEUKOCYTE ESTERASE ,URINE 1+ (NEGATIVE); NITRITE,URINE NEGATIVE (NEGATIVE); PH,URINE 5 (5-9); PROTEIN,URINE NEGATIVE (NEGATIVE); UROBILINOGEN,URINE NORMAL (NORMAL)
[2017-09-20 14:23] LABS: BACTERIA,URINE NEGATIVE /HPF; RBC,URINE RARE /HPF; SQUAMOUS EPITHELIAL CELL,UR 0-2 /HPF
[2017-09-20 16:09] VITALS: BP 182/80
[2017-09-20] MEDS: ENOXAPARIN 40 MG/0.4 ML (LOVENOX) SYR SC SCH (18:13)
[2017-09-20 20:00] VITALS: BP 189/84
[2017-09-20] MEDS: ATENOLOL 25 MG (TENORMIN) TAB PO SCH (20:13)
[2017-09-21 00:55] VITALS: BP 182/82
[2017-09-21 04:00] VITALS: BP 181/80
[2017-09-21] MEDS: 1/2 NS W/KCL 20 MEQ/L 1,000 ML IV SCH ×3 (04:29→21:59)
[2017-09-21 08:00] VITALS: BP 185/84
[2017-09-21] MEDS: PANTOPRAZOLE 20 MG TABLET (PROTONIX) PO SCH (09:51)
[2017-09-21] MEDS: DICLOFENAC 1% GEL 100 GM (VOLTAREN) TUBE TOP SCH ×4 (09:51→20:55)
[2017-09-21] MEDS: LACTOBACILLUS Acidoph/Bulgar (LACTINEX/FLORANEX) TAB PO SCH ×3 (09:51→17:16)
[2017-09-21] MEDS: LOSARTAN 50 MG (COZAAR) TAB PO SCH (09:51)
[2017-09-21] MEDS: cefTRIAXone 1,000 MG/NS 50 ML IVPB IV SCH ×2 (09:51)
[2017-09-21] MEDS: ALPRAZolam 0.25 MG (XANAX) TAB PO SCH (09:51)
[2017-09-21] MEDS: MECLIZINE 25 MG (ANTIVERT) TAB PO SCH ×2 (09:59→20:55)
--- NOTE | 2017-09-21 11:06 | Physical Therapy Daily Note ---
PT Daily Note-Current Subjective Pt sitting in recliner upon arrival. Pt agrees to PT but is very confused per son. Nursing reports "pt had a bad night" and did not rest well. Pain Location: No Pain Reported Mental Status Patient Orientation: Person, Confused Attachments: Oxygen Transfers Functional [place] Measure 0=Not Assessed/NA 4=Minimal Assistance 1=Total Assistance 5=Supervision or Setup 2=Maximal Assistance 6=Modified [place] 3=Moderate Assistance 7=Complete IndependenceIRFPAI Quality Coding Scale 6 Independent with activity with or without an assistive device 5 Patient requires set up or clean up by helper. Patient completes activity by themselves 4 Supervision or touching assist (CGA). [place] provide cues , steadying assist 3 The helper provides less than half the effort to complete the activity 2 The helper provides more than half the effort to complete the activity 1 Dependent. The helper does all the effort to complete an activity 7 Patient refused to complete or attempt activity 9 The patient did not perform the activity before the current illness or injury 88 Not attempted due to Medical conditions or safety concerns Scootin Sit to/from Stand: 3 Weight Bearing Right Lower Extremity: Right Full Weight Bearing Left Lower Extremity: Left Full Weight Bearing Gait Training Distance (FIM): 8=018-87 ft Distance: 75' Gait Level of Assist: 2 Gait Persons Needed: 1 Gait Assistive Device: FWW Pt leans toward L side during ambulation and doesn't correct even with VC and Phy. Cues. Pt is very confused has difficulty following directions. Treatments Pt transfers from recliner to standing using FWW at Mod A. Pt ambulates using FWW at Mod A. Pt uses restroom then returns to recliner to rest. Pt resting in recliner at end of tx with all needs met. Assessment Current Status: Fair Progress Pt is very confused and has increased difficulty following directions as well as transfers and ambulation. PT Short Term Goals Short Term Goals Transfers (B,C,W/C) (FIM): 5 PT Shelter Goals Shelter Goals PT Machine Sand Mixer Goals Time Frame: Sep 26, 2017 Transfers (B,C,W/C) (FIM): 5 Gait (FIM): 5 Gait distance (FIM): 3=150 ft Gait Level of Assist: 5 Gait Assistive Device: FWW PT Plan Problem List Problem List: Activity Tolerance, Functional Strength, Safety, Balance, Gait, Transfer Treatment/Plan Treatment Plan: Continue Plan of Care Treatment Plan: Bed Mobility, Education, Functional Activity [place], Functional Strength, Gait, Safety, Therapeutic Exercise, Transfers Treatment Duration: Sep 26, 2017 Frequency: 6 times per week Estimated Hrs Per Day: .25 hour per day Patient and/or Family Agrees t: Yes Safety Risks/Education Patient Education: Gait Training, Transfer Techniques, Correct Positioning, Safety Issues Teaching Recipient: Patient, Family Teaching Methods: Discussion Response to Teaching: Verbalize Understanding, Reinforcement Needed Time/GCodes Time In: 1025 Time Out: 1055 Total Billed Treatment Time: 30 Total Billed Treatment 1, GT (20m) & FA (10m) BRETT ONOFRE FAMILY PROGRAM SPECIALIST Sep 21, 2017 11:06
--- NOTE | 2017-09-21 11:57 | Progress Note-Hospitalist ---
Subjective HPI/CC On Admission Date Seen by Provider: Sep 21, 2017 Time Seen by Provider: 11:55 Ate breakfast without difficulty this morning. She voices no complaints slightly sedated but not currently combative. Objective Exam Vital Signs Vital Signs Date Time Temp Pulse Resp B/P (MAP) Pulse Ox O2 Delivery O2 Flow Rate FiO2 09/18/17 13:40 99.5 66 20 166/76 (106) 95 Nasal Cannula 2.00 Capillary Refill : Less Than 3 SecondsLess Than 3 Seconds General Appearance: No Apparent Distress Respiratory: Chest Non Tender, Lungs Clear, Normal Breath Sounds, No Accessory Muscle Use, No Respiratory Distress Cardiovascular: Regular Rate, Rhythm, No Edema, No Gallop, No JVD, No Murmur, Normal Peripheral Pulses Assessment/Plan Assessment and Plan Assess & Plan/Chief Complaint 1. History of urinary tract infection: Culture negative been on antibiotic treatment. 2. Delirium likely due to underlying infection continue to monitor. JASSON RAY MD Sep 21, 2017 11:57
[2017-09-21 12:00] VITALS: BP 172/79
[2017-09-21 16:00] VITALS: BP 164/73
[2017-09-21] MEDS: ENOXAPARIN 40 MG/0.4 ML (LOVENOX) SYR SC SCH (17:16)
[2017-09-21 20:00] VITALS: BP 182/76
[2017-09-21] MEDS: LOPERAMIDE 2 MG (IMODIUM) CAP PO PRN (20:55)
[2017-09-21] MEDS: ATENOLOL 25 MG (TENORMIN) TAB PO SCH (20:55)
[2017-09-21] MEDS: ALPRAZolam 0.25 MG (XANAX) TAB PO PRN (20:55)
[2017-09-22 00:59] VITALS: BP 150/69
[2017-09-22 04:30] VITALS: BP 195/89
[2017-09-22] MEDS: 1/2 NS W/KCL 20 MEQ/L 1,000 ML IV SCH ×3 (06:23→23:31)
[2017-09-22 08:00] VITALS: BP 165/74
[2017-09-22] MEDS: MECLIZINE 25 MG (ANTIVERT) TAB PO SCH ×2 (09:13→20:41)
[2017-09-22] MEDS: LACTOBACILLUS Acidoph/Bulgar (LACTINEX/FLORANEX) TAB PO SCH ×3 (09:14→17:00)
[2017-09-22] MEDS: LOSARTAN 50 MG (COZAAR) TAB PO SCH (09:14)
[2017-09-22] MEDS: PANTOPRAZOLE 20 MG TABLET (PROTONIX) PO SCH (09:14)
[2017-09-22] MEDS: cefTRIAXone 1,000 MG/NS 50 ML IVPB IV SCH ×2 (09:16)
[2017-09-22] MEDS: DICLOFENAC 1% GEL 100 GM (VOLTAREN) TUBE TOP SCH ×4 (09:17→20:42)
[2017-09-22] MEDS ORDERED: LOSARTAN 50 MG (COZAAR) TAB PO NR (09:45)
[2017-09-22] MEDS ORDERED: methylPREDNISolone 125 MG (Solu-MEDROL) VIAL IVP NR (10:00)
--- NOTE | 2017-09-22 10:45 | Progress Note-Hospitalist ---
Subjective HPI/CC On Admission Date Seen by Provider: Sep 22, 2017 Time Seen by Provider: 09:30 Ate breakfast without difficulty this morning. She voices no complaints slightly sedated but not currently combative. Subjective/Events-last exam Still more confusion at night. She has been sleeping restlessly for the past several hours. Son reports that she been complaining about wrist pain and increased swelling had been noted on the right. She has a history of unspecified arthritis he is unsure as to whether or not she's ever had gout in the past. She was not complaining about wrist pain yesterday. No night sweats chills or Reiger's or high fever were noted. MAXIMUM TEMPERATURE 99. Objective Exam Vital Signs Vital Signs Date Time Temp Pulse Resp B/P (MAP) Pulse Ox O2 Delivery O2 Flow Rate FiO2 09/18/17 13:40 99.5 66 20 166/76 (106) 95 Nasal Cannula 2.00 Capillary Refill : Less Than 3 SecondsLess Than 3 Seconds General Appearance: Chronically ill, Mild Distress Respiratory: No Accessory Muscle Use, No Respiratory Distress, Other (Chest clear anteriorly there are some diminished breath sounds in the bases with a few scattered rales fine no wheezing or rhonchi noted.) Cardiovascular: Regular Rate, Rhythm, No Edema, No Gallop, No JVD, No Murmur Extremity: Other (Right wrist is slightly erythematous warm with significant effusion. The forearm site where an IV is is unremarkable nontender there is no warmth or red streaking. 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 There is some decreased range of motion. Other hand joints revealed no evidence for synovitis or pain to palpation.) Assessment/Plan Assessment and Plan Assess & Plan/Chief Complaint 1. History of urinary tract infection: Culture negative been on antibiotic treatment. 2. Delirium likely due to underlying infection continue to monitor. 3. New inflammatory arthritis of the right wrist. Considering that her white count has been coming down and she's been on antibiotics for several days favor a noninfectious process with patient being at risk for gout. We'll give 1 dose of Solu-Medrol and if there is not significant improvement by tomorrow she will require orthopedic consultation for consideration for diagnostic arthrocentesis to rule out a septic joint. Continue Rocephin. If there is significant improvement she will need several more days of steroid either IV or by mouth. We'll be repeating a CBC a basic metabolic panel and uric acid level in the morning. 4. Moderate blood pressure elevation will increase losartan to 100 mg daily. JASSON RAY MD Sep 22, 2017 10:45
[2017-09-22 12:00] VITALS: BP 185/79
[2017-09-22 16:31] VITALS: BP 143/67
[2017-09-22] MEDS: ENOXAPARIN 40 MG/0.4 ML (LOVENOX) SYR SC SCH (17:00)
[2017-09-22 20:00] VITALS: BP 158/74
[2017-09-22] MEDS: ALPRAZolam 0.25 MG (XANAX) TAB PO PRN (20:40)
[2017-09-22] MEDS: ATENOLOL 25 MG (TENORMIN) TAB PO SCH (20:40)
[2017-09-22] MEDS: ACETAMINOPHEN 500 MG TAB (TYLENOL) PO PRN (20:41)
[2017-09-23 00:29] VITALS: BP 135/65
[2017-09-23] MEDS: LACTOBACILLUS Acidoph/Bulgar (LACTINEX/FLORANEX) TAB PO SCH ×3 (06:30→15:12)
[2017-09-23] MEDS: PANTOPRAZOLE 20 MG TABLET (PROTONIX) PO SCH (06:30)
[2017-09-23 06:41] LABS: BASOPHILS % (AUTO) 0 % (0-10); EOSINOPHILS % (AUTO) 0 % (0-10); HEMATOCRIT 31 % (35-52); HEMOGLOBIN 9.9 G/DL (11.5-16.0); LYMPHOCYTES # (AUTO) 0.8 X 10^3 (1.0-4.0); LYMPHOCYTES % (AUTO) 12 % (12-44); MEAN CORPUSCULAR HEMOGLOBIN 29 PG (25-34); MEAN CORPUSCULAR HGB CONC 32 G/DL (32-36); MEAN CORPUSCULAR VOLUME 89 FL (80-99); MEAN PLATELET VOLUME 10.6 FL (7.4-10.4); MONOCYTES # (AUTO) 0.7 X 10^3 (0.0-1.0); MONOCYTES % (AUTO) 10 % (0-12); NEUTROPHILS # (AUTO) 5.6 X 10^3 (1.8-7.8); NEUTROPHILS % (AUTO) 78 % (42-75); PLATELET COUNT 238 10^3/uL (130-400); RED BLOOD COUNT 3.45 10^6/uL (4.35-5.85); RED CELL DISTRIBUTION WIDTH 13.3 % (10.0-14.5); WHITE BLOOD COUNT 7.2 10^3/uL (4.3-11.0)
[2017-09-23 06:56] LABS: BUN/CREATININE RATIO 15; CALCIUM 9.1 MG/DL (8.5-10.1); CARBON DIOXIDE 24 MMOL/L (21-32); CHLORIDE 103 MMOL/L (98-107); CREATININE SERUM 0.68 MG/DL (0.60-1.30); GFR ESTIMATED > 60; GLUCOSE 121 MG/DL (70-105); POTASSIUM 4.5 MMOL/L (3.6-5.0); SODIUM 137 MMOL/L (135-145); URIC ACID 2.2 MG/DL (2.6-7.2)
[2017-09-23 08:00] VITALS: BP 182/83
[2017-09-23] MEDS: cefTRIAXone 1,000 MG/NS 50 ML IVPB IV SCH ×2 (08:13)
[2017-09-23] MEDS: 1/2 NS W/KCL 20 MEQ/L 1,000 ML IV SCH ×2 (08:13→14:48)
[2017-09-23] MEDS: MECLIZINE 25 MG (ANTIVERT) TAB PO SCH (08:14)
[2017-09-23] MEDS: DICLOFENAC 1% GEL 100 GM (VOLTAREN) TUBE TOP SCH ×2 (08:14→13:50)
[2017-09-23] MEDS ORDERED: LOSARTAN 100 MG (COZAAR) TABLET PO SCH (09:00)
--- NOTE | 2017-09-23 09:22 | Physical Therapy Daily Note ---
PT Daily Note-Current Subjective Patient is alert and very confused. Pain Numeric Pain Scale: 0-No Pain Location: No Pain Reported Mental Status Patient Orientation: Confused Attachments: IV Transfers Functional [place] Measure 0=Not Assessed/NA 4=Minimal Assistance 1=Total Assistance 5=Supervision or Setup 2=Maximal Assistance 6=Modified [place] 3=Moderate Assistance 7=Complete IndependenceIRFPAI Quality Coding Scale 6 Independent with activity with or without an assistive device 5 Patient requires set up or clean up by helper. Patient completes activity by themselves 4 Supervision or touching assist (CGA). [place] provide cues , steadying assist 3 The helper provides less than half the effort to complete the activity 2 The helper provides more than half the effort to complete the activity 1 Dependent. The helper does all the effort to complete an activity 7 Patient refused to complete or attempt activity 9 The patient did not perform the activity before the current illness or injury 88 Not attempted due to Medical conditions or safety concerns Transfers (B, C, W/C) (FIM): 4 Scootin Rollin Supine to/from Sit: 5 Sit to/from Stand: 4 Weight Bearing Right Lower Extremity: Right Full Weight Bearing Left Lower Extremity: Left Full Weight Bearing Gait Training Gait (FIM): 4 Distance (FIM): 3=150 ft Distance: 400' Gait Level of Assist: 4 Gait Persons Needed: 1 Gait Assistive Device: FWW shuffle gait sequence, CGA for safety Exercises Seated Therapy Exercises: Ankle pumps, Long arc quads, Hip flexion Seated Reps: 20 Assessment Patient tolerated treatment well and is up in recliner with chair alarm activated and family present. PT Short Term Goals Short Term Goals Transfers (B,C,W/C) (FIM): 5 PT Motor Bus Driver Goals [facility] Goals PT Chcf Goals Time Frame: Sep 26, 2017 Transfers (B,C,W/C) (FIM): 5 Gait (FIM): 5 Gait distance (FIM): 3=150 ft Gait Level of Assist: 5 Gait Assistive Device: FWW PT Plan Treatment/Plan Treatment Plan: Continue Plan of Care Treatment Plan: Bed Mobility, Education, Functional Activity [place], Functional Strength, Gait, Safety, Therapeutic Exercise, Transfers Treatment Duration: Sep 26, 2017 Frequency: 6 times per week Estimated Hrs Per Day: .25 hour per day Patient and/or Family Agrees t: Yes Time/GCodes Time In: 837 Time Out: 852 Total Billed Treatment Time: 15 Total Billed Treatment 1 visit FA 15 min ELMA POON PT Sep 23, 2017 09:22
--- NOTE | 2017-09-23 09:26 | Discharge Summary ---
Diagnosis/Chief Complaint Date of Admission Sep 18, 2017 at 15:43 Date of Discharge Discharge Date: Sep 20, 2017 Discharge Time: 1200 Admission Diagnosis Admission Diagnosis SEPSIS URINARY TRACT INFECTION HYPERTENSION DEPRESSION ANXIETY OSTEOARTHRITIS HYPERLIPIDEMIA ACID REFLUX Reason Hospital Visit PT IS AN 87 Y/O FEMALE WHO IS KNOWN TO ME FROM CLINIC. SHE STATES THAT SHE STARTED TO FEEL POORLY ON SATURDAY AND SHE DID NOT WANT HER FAMILY TO BRING HER TO THE HOSPITAL. HER [id number] IS A NURSE, AND SHE GOT THE PHONE CALL ABOUT HOW BAD PRETTY WAS FEELING AND DETERMINED THAT SHE WAS TOO ILL TO GO TO URGENT CARE AND THUS TOOK HER TO THE EMERGENCY DEPARTMENT WHERE SHE WAS FOUND TO BE SEPTIC FROM A UTI. Discharge Summary Discharge Physical Examination Allergies: Coded Allergies: Penicillins (Unverified Allergy, Intermediate, RASH, HAS RECEIVED ROCEPHIN , 09/18/17) Sulfa (Sulfonamide Antibiotics) (Unverified Allergy, Unknown, RASH, 03/12/15 ) codeine (Unverified Allergy, Unknown, 09/12/14) Vitals & I&Os Vital Signs Date Time Temp Pulse Resp B/P (MAP) Pulse Ox O2 Delivery O2 Flow Rate FiO2 09/23/17 08:00 98.3 62 20 182/83 (116) 96 Room Air 09/18/17 23:00 2.00 Hospital Course Pending Labs Laboratory Tests 09/23/17 05:53: White Blood Count 7.2, Red Blood Count 3.45, Hemoglobin 9.9, Hematocrit 31, Mean Corpuscular Volume 89, Mean Corpuscular Hemoglobin 29, Mean Corpuscular Hemoglobin Concent 32, Red Cell Distribution Width 13.3, Platelet Count 238, Mean Platelet Volume 10.6, Neutrophils (%) (Auto) 78, Lymphocytes (%) (Auto) 12 , Monocytes (%) (Auto) 10, Eosinophils (%) (Auto) 0, Basophils (%) (Auto) 0, Neutrophils # (Auto) 5.6, Lymphocytes # (Auto) 0.8, Monocytes # (Auto) 0.7, Eosinophils # (Auto) 0.0, Basophils # (Auto) 0.0, Sodium Level 137, Potassium Level 4.5, Chloride Level 103, Carbon Dioxide Level 24, Anion Gap 10, Blood Urea Nitrogen 10, Creatinine 0.68, Estimat Glomerular Filtration Rate > 60, BUN/ Creatinine Ratio 15, Glucose Level 121, Uric Acid 2.2, Calcium Level 9.1 Discharge Instructions to patient/family Please see electronic discharge instructions given to patient. Discharge Medications Reviewed and agree with Discharge Medication list on patient's Discharge Instruction sheet Clinical Quality Measures DVT/VTE Risk/Contraindication: Risk Factor Score Per Nursin RFS Level Per Nursing on Admit: 4+=Very High YEVGENIY BRAVO MD Sep 23, 2017 09:26
[2017-09-23] MEDS ORDERED: LOSA100T28 PO (09:28)
--- NOTE | 2017-09-23 09:31 | Discharge Inst-Skilled Nursing ---
Discharge [facility]-Skilled NF Patient Instructions Patient Problems: UTI, HYPERTENSION, DEMENTIA, OSTEOARTHRITIS, WRIST AND SHOULDER AND BACK PAIN, GENERALIZED WEAKNESS Consult/Follow Up/Orders Follow Up Appt.: 1 WK WITH [facility] Skilled NF Admit to: Via [facility] [place] Certification ([facility]) I certify that SNF services are required to be given on an inpatient basis because of the above named patient's need for longterm care on a continuing basis for the conditions(s) for which he/she was receiving inpatient hospital services prior to his/her transfer to the SNF. Jail Facility Order: Nursing Services, [place]-Evaluate & Treat, Physical Therapy-Evaluate & Treat Discharge Diet: Regular Diet Daily Activity as Tolerated: Yes New & Resume Previous Orders Yevgeniy Cornelius Sep 23, 2017 09:30 Medication List: Active Scripts Active Losartan Potassium 100 Mg Tablet 100 Mg PO DAILY 30 Days Reported Tums (Calcium Carbonate) 300 Mg Tab.chew 600 Mg PO BID Voltaren (Diclofenac Sodium) 100 Gm Gel..gram. 2 Gm TP QID PRN Vitamin D3 (Cholecalciferol (Vitamin D3)) 5,000 Unit Capsule 5,000 Unit PO DAILY Hydrocodone/Acetaminophen 5/325mg Tablet (Acetaminophen/Hydrocodone Bitart) 1 Tab Tab 1 Tab PO Q8H PRN Aspirin EC (Aspirin) 81 Mg Tablet.dr 81 Mg PO DAILY Tylenol Extra Strength (Acetaminophen) 500 Mg Tablet 1,000 Mg PO Q6H PRN Imodium A-D (Loperamide HCl) 2 Mg Capsule 2 Mg PO UD PRN Tramadol HCl 50 Mg Tablet 50 Mg PO Q6H PRN Meloxicam 15 Mg Tablet 15 Mg PO DAILY Potassium Chloride 10 Meq Capsule.er 20 Meq PO DAILY TAKES 2 (10MEQ) CAPSULES Alprazolam 0.25 Mg Tablet 0.5-1 Tab PO BID PRN Atenolol 25 Mg Tablet 25 Mg PO DAILY Omeprazole 20 Mg Capsule.dr 20 Mg PO DAILY Meclizine HCl 12.5 Mg Tablet 12.5 Mg PO BID Simvastatin 40 Mg Tablet 40 Mg PO HS Celexa (Citalopram Hydrobromide) 20 Mg Tablet 20 Mg PO DAILY Lab results: Laboratory Tests Test 09/23/17 05:53 Range/Units White Blood Count 7.2 4.3-11.0 10^3/uL Red Blood Count 3.45 L 4.35-5.85 10^6/uL Hemoglobin 9.9 L 11.5-16.0 G/DL Hematocrit 31 L 35-52 % Mean Corpuscular Volume 89 80-99 FL Mean Corpuscular Hemoglobin 29 25-34 PG Mean Corpuscular Hemoglobin Concent 32 32-36 G/DL Red Cell Distribution Width 13.3 10.0-14.5 % Platelet Count 238 130-400 10^3/uL Mean Platelet Volume 10.6 H 7.4-10.4 FL Neutrophils (%) (Auto) 78 H 42-75 % Lymphocytes (%) (Auto) 12 12-44 % Monocytes (%) (Auto) 10 0-12 % Eosinophils (%) (Auto) 0 0-10 % Basophils (%) (Auto) 0 0-10 % Neutrophils # (Auto) 5.6 1.8-7.8 X 10^3 Lymphocytes # (Auto) 0.8 L 1.0-4.0 X 10^3 Monocytes # (Auto) 0.7 0.0-1.0 X 10^3 Eosinophils # (Auto) 0.0 0.0-0.3 10^3/uL Basophils # (Auto) 0.0 0.0-0.1 10^3/uL Sodium Level 137 135-145 MMOL/L Potassium Level 4.5 3.6-5.0 MMOL/L Chloride Level 103 98-107 MMOL/L Carbon Dioxide Level 24 21-32 MMOL/L Anion Gap 10 5-14 MMOL/L Blood Urea Nitrogen 10 7-18 MG/DL Creatinine 0.68 0.60-1.30 MG/DL Estimat Glomerular Filtration Rate > 60 BUN/Creatinine Ratio 15 Glucose Level 121 H 70-105 MG/DL Uric Acid 2.2 L 2.6-7.2 MG/DL Calcium Level 9.1 8.5-10.1 MG/DL My orders: Orders - YEVGENIY CORNELIUS MD Attending Discharge (09/23/17 09:28) YEVGENIY CORNELIUS MD Sep 23, 2017 09:31
--- NOTE | 2017-09-23 12:31 | Occupational Ther Daily Note ---
OT Current Status-Daily Note Subjective Pt alert, sitting in recliner. Family present in room. Pt pleasantly confused. Pt agreed to shower. Mental Status/Objective Patient Orientation: Person, Confused Functional [place] Measure 0=Not Assessed/NA 4=Minimal Assistance 1=Total Assistance 5=Supervision or Setup 2=Maximal Assistance 6=Modified [place] 3=Moderate Assistance 7=Complete [place] Attachments: IV ADL-Treatment Pt ambulated with CGA using FWW to bathroom. Pt required verbal/physical cue to use walker for ambulation. Pt had LOB throughout treatment. Pt stating concerns over family and getting her hair wet. BAILEY reassured pt all was okay and would be taken care of. Pt needed to be directed for sequencing during shower and where to go. Min A for shower transfer using shower bench, grabbars and FWW. After set up in shower, pt required assist to sequence where to start bathing and how to use wash cloth. Pt required assistance to get started, washing legs and back then pt was able to wash upper body. Pt stood to wash janna area and buttocks, assist needed to where to wash and what to wash. Pt able to reach all areas, assistance to sequence how to do and what she was doing. Pt transferred out of shower to dress. Pt donned hospital gown with assistance due to IV. Pt able to don underwear with supervision and min A to don pants. Pt is able to doff socks with CGA when bending over, LOB noted. Assist to don socks. Pt then was able to stand at sink with CGA, LOB. Pt able to brush hair and could verbally sequence brushing dentures though declined to complete oral care. Pt then ambulated back to room with CGA, LOB noted. After therapy, pt sitting in recliner with call light/phone in reach. Bathing (FIM): 3 Bathing Location: Chest, Abdomen, Perineal Area Lower Body Dressing (FIM): 4 Transfers (B, C, W/C) (FIM): 4 Toilet/Commode Transfer (FIM): 4 Shower Transfer(FIM): 4 OT Short Term Goals Short Term Goals Time Frame: Sep 26, 2017 Eating(FIM): 5 Grooming(FIM): 5 Bathing(FIM): 4 Upper Body Dressing(FIM): 5 Lower Body Dressing(FIM): 4 Toileting(FIM): 5 Transfers (B,C,W/C) (FIM): 5 Toilet/Commode Transfer(FIM): 5 Additional Short Term Goals: 1-Demonstrate ADL Tasks, 2-Verbalize Understanding , 3-ImproveStrength/[place] 1=Demonstrate adherence to instructed precautions during ADL tasks. 2=Patient will verbalize/demonstrate understanding of assistive devices/ modifications for ADL. 3=Patient will improve strength/tolerance for activity to enable patient to perform ADL's. OT Assisted Goals Assisted Goals Time Frame: Oct 03, 2017 Eating (FIM): 6 Grooming(FIM): 5 Bathing(FIM): 5 Upper Body Dressing(FIM): 5 Lower Body Dressing(FIM): 5 Toileting(FIM): 5 Transfers (B,C,W/C) (FIM): 5 Toilet/Commode Transfer(FIM): 5 Shower Transfer(FIM): 5 Additional Goals: 1-Demonstrate ADL Tasks, 2-Verbalize Understanding, 3- ImproveStrength/[place] 1=Demonstrate adherence to instructed precautions during ADL tasks. 2=Patient will verbalize/demonstrate understanding of assistive devices/ modifications for ADL. 3=Patient will improve strength/tolerance for activity to enable patient to perform ADL's. OT Education/Plan Discharge Recommendations Plan/Recommendations: Continue POC Treatment Plan/Plan of Care Patient would benefit from OT for education, treatment and training to promote independence in ADL's, mobility, safety and/or upper extremity function for ADL' s. Plan of Care: ADL Retraining, Caregiver Training, Functional Mobility, UE Funct Exercise/Act Treatment Duration: Oct 03, 2017 Frequency: 5 times per week Estimated Hrs Per Day: .25 hour per day Agreement: Yes Rehab Potential: Fair Time/GCodes Start Time: 11:50 Stop Time: 12:15 Total Time Billed (hr/min): 25 Billed Treatment Time 1 visit-ADL 2 (25 min) ARAM LERNER Sep 23, 2017 12:30
[2017-09-23] MEDS: ACETAMINOPHEN 500 MG TAB (TYLENOL) PO PRN (15:11)
[2017-09-23] MEDS: ALPRAZolam 0.25 MG (XANAX) TAB PO PRN (15:11)
[2017-09-23] MEDS ORDERED: LORazepam INJ 2 MG/ML (ATIVAN) VIAL IM/IV ONE (16:45)
[2017-09-23 17:00] VITALS: BP 182/83
--- NOTE | 2017-09-24 08:40 | Therapy Team Discharge Summary ---
Therapy Discharge Summary Discharge Recommendations Date of Discharge Sep 23, 2017 at 17:00 Therapy D/C Recommendations: 24 hr Supervision, Intermediate (TCU/NH) Occupational Therapy Pt. has been seen by occupational therapy to increase overall strength and independence with daily tasks. Pt. has been confused and progress has been varied. At discharge, pt. required mod/min assist with daily tasks for bathing and dressing, as well as max cues for sequencing and direction. Pt. is discharging to [facility] with 24 hour assistance and care. Recommend continued OT services there. Decreased Activ Tolerance, Decreased UE Strength, Dependent Transfers, Impaired Bed Mobility, Impaired Cognition, Impaired Coordination, Impaired Funct Balance , Impaired I ADL's, Impaired Self-Care Skills, Restricted Funct UE ROM PT Skilled Nursing Goals Compound Worker Goals PT Skilled Nursing Goals Time Frame: Sep 26, 2017 Transfers (B,C,W/C) (FIM): 5 Rollin Gait (FIM): 5 Gait distance (FIM): 3=150 ft Gait Level of Assist: 5 Gait Assistive Device: FWW OT Skilled Nursing Goals Compound Worker Goals Time Frame: Oct 03, 2017 Eating (FIM): 6 (not met) Groomin (not met) Bathing(FIM): 5 (not met) Upper Body Dressing(FIM): 5 (not met) Lower Body Dressing(FIM): 5 (not met) Toileting(FIM): 5 (not met) Transfers (B,C,W/C) (FIM): 5 (not met) Toilet/Commode Transfer(FIM): 5 (not met) Shower Transfer(FIM): 5 (not met) Additional Goals: 1-Demonstrate ADL Tasks, 2-Verbalize Understanding, 3- ImproveStrength/[place] 1=Demonstrate adherence to instructed precautions during ADL tasks. 2=Patient will verbalize/demonstrate understanding of assistive devices/ modifications for ADL. 3=Patient will improve strength/tolerance for activity to enable patient to perform ADL's. STERLING CORTES OT Sep 24, 2017 08:40
== END 2017-09-23 17:00 | DRG 872 ==
LOC: EDUNIT# 13:35 → ER 13:36 → 4TH 15:43 → EDPENDDISTM 09-23 11:00 → EDPENDDISDT 09-23 11:00
PROVIDERS: ADMIT Family Medicine; ATTEND Family Medicine
DX: A41.9 Sepsis, unspecified organism (principal); N39.0 Urinary tract infection, site not specified; E87.1 Hypo-osmolality and hyponatremia; I10 Essential (primary) hypertension; F32.9 Major depressive disorder, single episode, unspecified; F41.8 Other specified anxiety disorders; Z66 Do not resuscitate; E78.5 Hyperlipidemia, unspecified; K21.9 Gastro-esophageal reflux disease without esophagitis; F03.90 Unspecified dementia, unspecified severity, without behavioral disturbance, psychotic disturbance, mood disturbance, and anxiety; E83.42 Hypomagnesemia; M81.0 Age-related osteoporosis without current pathological fracture; R41.0 Disorientation, unspecified; M19.031 Primary osteoarthritis, right wrist; Z96.653 Presence of artificial knee joint, bilateral; Z91.81 History of falling; Z86.79 Personal history of other diseases of the circulatory system
CPT/HCPCS: 36415; 51701; 70450; 71045; 80048; 80053; 81000; 83605; 83735; 84484; 84550; 85007; 85025; 85027; 85610; 85730; 86141; 87040; 87088; 93005; 96361; 96365; 96367; 96368

== ENCOUNTER → 2017-11-05 | Outpatient (CLI) | payer MEDICARE ==
[~2017-11-05] MED LIST changes: +ACET-2267 PO; +ACHD5005 PO; +ALPR0.254 PO; +ASPI-983 PO; +CALC300T4 PO; +CITA20TA12 PO; +DICL100G18 TP; +LOPE-145 PO; +LOSA100T28 PO; +LOSA50TA36 PO; +MECL12.579 PO; +MELO15TA39 PO; +POTA10CA43 PO
--- NOTE | 2017-11-05 13:03 | Diagnostic Imaging Report ---
INDICATION: Left shoulder pain. Time of exam 10:50 AM 2 views left shoulder demonstrate severe glenohumeral joint degenerative changes. There is complete loss of the joint space. There is sclerosis and subchondral cyst formation. Prominent osteophytes at the humeral head and neck junction inferiorly are noted. Acromioclavicular alignment is normal. Acromiohumeral space is normal. No fractures are seen. IMPRESSION: Severe glenohumeral joint degenerative change. No acute bony abnormality is detected. Dictated by: Dictated on workstation # [id number]
== END ==
LOC: RAD 10:19
PROVIDERS: ATTEND Nurse Practitioner Family
DX: M19.012 Primary osteoarthritis, left shoulder (principal)
CPT/HCPCS: 73030

== ENCOUNTER → 2018-02-14 | Outpatient (CLI) | payer MEDICARE ==
[2018-02-14 07:40] LABS: BILIRUBIN,URINE NEGATIVE (NEGATIVE); CLARITY,URINE CLEAR; COLOR,URINE YELLOW; GLUCOSE, URINE (UA) NEGATIVE (NEGATIVE); KETONES,URINE NEGATIVE (NEGATIVE); LEUKOCYTE ESTERASE ,URINE 2+ (NEGATIVE); NITRITE,URINE NEGATIVE (NEGATIVE); PH,URINE 6 (5-9); PROTEIN,URINE 1+ (NEGATIVE); UROBILINOGEN,URINE NORMAL (NORMAL)
[2018-02-14 07:41] LABS: BACTERIA,URINE NEGATIVE /HPF; RBC,URINE RARE /HPF; SQUAMOUS EPITHELIAL CELL,UR 0-2 /HPF
== END ==
LOC: CVS 07:22
PROVIDERS: ATTEND Family Medicine
DX: R82.99 Other abnormal findings in urine (principal)
CPT/HCPCS: 81000; 87077; 87088; 87186